=== PATIENT | male | born 1975 | race Caucasian/White ===

== ENCOUNTER 2017-04-12 22:39 | Inpatient (IN) | payer OTHER ==
[2017-04-12 23:16] VITALS: BMI 27.1
--- NOTE | 2017-04-13 00:26 | PDOC ---
History of Present Illness - General History Source: Patient Exam Limitations: No Limitations - History of Present Illness Initial Comments: 04/13/17 02:11 Patient is a 41 year old male with a significant past medical history of ETOH abuse and UGI bleed who presents to the ED with nausea and coffee ground emesis. Patient states that his last drink was 6 am on Tuesday and he started vomiting on Tuesday that stopped Tuesday night. Patient reports multiple vomiting episodes, coffee ground like, and intermittent nausea. He also reports tremors. He reports urine discoloration and back pain. He denies diarrhea or constipation. He denies fever or chills. Last GI bleed was 04/04/16 and alcohol withdrawal. PSH: none Allergies: None Known Social History: He admits to cigarette use (approximately half a pack/week). He admits to daily ETOH since 16 years old. <Columba Holman - Last Filed: 04/13/17 02:11> <Sherita Frazier - Last Filed: 04/13/17 02:19> - General Chief Complaint: Coffee Ground Emesis Stated Complaint: NAUSEA/VOMITING Past History <Columba Holman - Last Filed: 04/13/17 02:11> - Past Medical History Other medical history: ETOH - Psycho/Social/Smoking Cessation Hx Anxiety: No Suicidal Ideation: No Smoking History: Current some day smoker Have you smoked in the past 12 months: Yes Number of Cigarettes Smoked Daily: 2 Information on smoking cessation initiated: No 'Breaking Loose' booklet given: 05/01/16 Hx Alcohol Use: Yes Drug/Substance Use Hx: No Substance Use Type: Alcohol, Cocaine <Sherita Frazier - Last Filed: 04/13/17 02:19> - Past Medical History Allergies/Adverse Reactions: Allergies Allergy/AdvReac Type Severity Reaction Status Date / Time No Known Allergies Allergy Verified 04/12/17 23:16 Home Medications: Ambulatory Orders Folic Acid - 1 mg PO DAILY #30 tablet 05/04/16 Multivitamins [Multivit ([facility] Formul[facility])] 1 tab PO DAILY #0 tab 05/04/16 Pantoprazole Sodium [Protonix -] 40 mg PO DAILY #30 tablet.ec 05/04/16 Thiamine HCl [Vitamin B1 -] 100 mg PO DAILY #30 tablet 05/04/16 Review of Systems - Review of Systems Able to Perform ROS?: Yes Comments:: 04/13/17 02:11 CONSTITUTIONAL: Present: tremors Absent: fever, chills, diaphoresis, generalized weakness, malaise, loss of appetite HEENT: Absent: rhinorrhea, nasal congestion, throat pain, throat swelling, difficulty swallowing, mouth swelling, ear pain, eye pain, visual Changes CARDIOVASCULAR: Absent: chest pain, syncope, palpitations, irregular heart rate, lightheadedness , peripheral edema RESPIRATORY: Absent: cough, shortness of breath, dyspnea with exertion, orthopnea, wheezing, stridor, hemoptysis GASTROINTESTINAL: Present: vomiting, nausea Absent: abdominal pain, abdominal distension, diarrhea, constipation, melena, hematochezia GENITOURINARY: Absent: dysuria, frequency, urgency, hesitancy, hematuria, flank pain, genital pain MUSCULOSKELETAL: Absent: myalgia, arthralgia, joint swelling SKIN: Absent: rash, itching, pallor HEMATOLOGIC/IMMUNOLOGIC: Absent: easy bleeding, easy bruising, lymphadenopathy, frequent infections ENDOCRINE: Absent: unexplained weight gain, unexplained weight loss, heat intolerance, cold intolerance NEUROLOGIC: Absent: headache, focal weakness or paresthesias, dizziness, unsteady gait, seizure, mental status changes, bladder or bowel incontinence PSYCHIATRIC: Absent: anxiety, depression, suicidal or homicidal ideation, hallucinations. Is the patient limited Japanese proficient: Yes <Columba Holman - Last Filed: 04/13/17 02:11> *Physical Exam - Vital Signs Last Vital Signs Temp Pulse Resp BP Pulse Ox 97.9 F 145 H 20 129/59 97 04/12/17 23:10 04/12/17 23:10 04/12/17 23:10 04/12/17 23:10 04/12/17 23:10 - Physical Exam Comments: 04/13/17 02:13 GENERAL: +Tremulous. Awake and alert. No acute distress. HEENT: Normocephalic, atraumatic. PERRLA, EOMI. No conjunctival pallor. Sclera are non- icteric. Moist mucous membranes. Oropharynx is clear. NECK: Supple. Full ROM. No JVD. Carotid pulses 2+ and symmetric, without bruits. No thyromegaly. No lymphadenopathy. CARDIOVASCULAR: +Tachycardic.No murmurs, rubs, or gallops. Distal pulses are 2+ and symmetric. PULMONARY: No evidence of respiratory distress. Lungs clear to auscultation bilaterally. No wheezing, rales or rhonchi. ABDOMINAL: Soft. Non-tender. Non-distended. No rebound or guarding. No organomegaly. Normoactive bowel sounds. MUSCULOSKELETAL Normal range of motion at all joints. No bony deformities or tenderness. No CVA tenderness. EXTREMITIES: No cyanosis. No clubbing. No edema. No calf tenderness. SKIN: Warm and dry. Normal capillary refill. No rashes. No jaundice. NEUROLOGICAL: Alert, awake, appropriate. Cranial nerves 2-12 intact. No deficits to light touch and temperature in face, upper extremities and lower extremities. No motor deficits in the in face, upper extremities and lower extremities. Normoreflexic in the upper and lower extremities. Normal speech. PSYCHIATRIC: Cooperative. Good eye contact. Appropriate mood and affect. <Columba Holman - Last Filed: 04/13/17 02:11> - Vital Signs Last Vital Signs Temp Pulse Resp BP Pulse Ox 97.9 F 145 H 20 129/59 97 04/12/17 23:10 04/12/17 23:10 04/12/17 23:10 04/12/17 23:10 04/12/17 23:10 <Sherita Frazier - Last Filed: 04/13/17 02:19> ED Treatment Course - LABORATORY CBC & Chemistry Diagram: 04/13/17 01:04 04/13/17 01:04 - ADDITIONAL ORDERS Additional order review: Laboratory Results 04/13/17 04/13/17 04/13/17 01:04 01:04 01:04 INR 1.04 Sodium 133 L Potassium 3.5 Chloride 90 L D Carbon Dioxide 28 Anion Gap 15 BUN 19 H D Creatinine 1.2 D Creat Clearance w eGFR > 60 Random Glucose 128 H D Calcium 9.4 D Total Bilirubin 5.4 H D AST 191 H D ALT 162 H D Alkaline Phosphatase 85 D Creatine Kinase 357 H D Troponin I < 0.02 Total Protein 7.7 D Albumin 3.9 D 04/13/17 01:04 RBC 5.04 D MCV 95.7 MCHC 33.6 RDW 15.2 Neutrophils % 83.7 H Lymphocytes % 6.1 L D Monocytes % 10.0 Eosinophils % 0.0 D Basophils % 0.2 - Medications Given in the ED: ED Medications Discontinued Medications Generic Name Dose Route Start Last Admin Trade Name Cheko PRN Reason Stop Dose Admin Chlordiazepoxide HCl 50 mg 04/13/17 01:27 04/13/17 01:34 Librium - PO 04/13/17 01:28 50 mg NOW ONE Administration Chlordiazepoxide HCl 50 mg 04/13/17 01:43 04/13/17 02:10 Librium - PO 04/13/17 01:44 Not Given ONCE ONE Sodium Chloride 1,000 mls @ 1,000 mls/hr 04/13/17 00:28 04/13/17 01:10 Normal Saline - IV 04/13/17 01:27 1,000 mls/hr ASDIR STA Administration Pantoprazole Sodium 40 mg/ 100 mls @ 200 mls/hr 04/13/17 00:29 04/13/17 01:10 Sodium Chloride IVPB 04/13/17 00:58 200 mls/hr ONCE ONE Administration Ondansetron HCl 4 mg 04/13/17 00:28 04/13/17 01:10 Zofran Injection IVPB 04/13/17 00:29 4 mg ONCE ONE Administration <Columba Holman - Last Filed: 04/13/17 02:11> - LABORATORY CBC & Chemistry Diagram: 04/13/17 01:04 04/13/17 01:04 <Sherita Frazier - Last Filed: 04/13/17 02:19> *DC/Admit/Observation/Transfer - Attestations Scribe Attestion: 04/13/17 02:14 Documentation prepared by ROXANE Rey, acting as certified medical coding specialist for Sherita Frazier MD. <Columba Holman - Last Filed: 04/13/17 02:11> - Discharge Dispostion Admit: Yes <Sherita Frazier - Last Filed: 04/13/17 02:19> Diagnosis at time of Disposition: Alcoholic liver disease Gastrointestinal hemorrhage Qualifiers: GI bleed type/associated pathology: unspecified gastrointestinal hemorrhage type Qualified Code(s): K92.2 - Gastrointestinal hemorrhage, unspecified Alcohol withdrawal Qualifiers: Complication of substance-induced condition: uncomplicated Qualified Code(s): F10.230 - Alcohol dependence with withdrawal, uncomplicated - Referrals Referrals: Mateusz Reese [Primary Care Provider] -
[2017-04-13] MEDS ORDERED: SODIUM CHLORIDE 1,000 ML IV STA (00:28)
[2017-04-13] MEDS ORDERED: ONDANSETRON 4 MG/2 ML VIAL IVPB ONE (00:28)
[2017-04-13] MEDS ORDERED: PANTOPRAZOLE SODIUM 40 MG in SODIUM CHLORIDE 100 ML IVPB ONE (00:29)
[2017-04-13] MEDS ORDERED: PANTOPRAZOLE SODIUM 100 ML IVPB ONE (00:54)
[2017-04-13] MEDS ORDERED: ONDANSETRON 4 MG/2 ML VIAL ONE (00:55)
[2017-04-13 01:22] LABS: BASOPHIL 0.2 % (0-2.0); MCH 32.2 pg (25.7-33.7); MCHC 33.6 g/dl (32.0-35.9); MEAN CELL VOLUME 95.7 fl (80-96); NEUTROPHILS 83.7 % (42.8-82.8); RDW 15.2 % (11.9-15.9); WHITE BLOOD COUNT 7.5 K/mm3 (4.0-10.0)
[2017-04-13] MEDS ORDERED: chlordiazePOXIDE HCL 25 MG CAPSULE PO ONE ×2 (01:27→01:43)
[2017-04-13] MEDS ORDERED: chlordiazePOXIDE HCL 25 MG CAPSULE ONE (01:32)
[2017-04-13 01:39] LABS: INR 1.04 (0.82-1.09); PROTHROMBIN TIME (PATIENT) 11.5 SEC (9.98-11.88)
[2017-04-13 01:50] LABS: ALBUMIN 3.9 g/dl (3.4-5.0); ALK PHOS 85 U/L (45-117); ANION GAP 15 (8-16); BILIRUBIN,TOTAL 5.4 mg/dL (0.2-1.0); CALCIUM 9.4 mg/dL (8.5-10.1); CO2 28 mmol/L (21-32); CREATININE 1.2 mg/dL (0.7-1.3); GLUCOSE,RANDOM 128 mg/dL (74-106); SGOT/AST 191 U/L (15-37); SGPT/ALT 162 U/L (12-78); TOT PROT 7.7 g/dl (6.4-8.2)
[2017-04-13 01:59] LABS: TROPONIN I < 0.02 ng/ml (0.00-0.05)
--- NOTE | 2017-04-13 02:29 | PN ---
Teaching Attending Note Name of Resident: Chery Dunaway ATTENDING PHYSICIAN STATEMENT I saw and evaluated the patient. I reviewed the resident's note and discussed the case with the resident. I agree with the resident's findings and plan as documented. SUBJECTIVE: 40 M with pmhx of UGI bleed, etoh abuse ( started at age 16), who presents with coffee-ground emesis. States his last drink was 6 am on Tuesday. Notes multiple episodes of coffee-ground emesis since them. Also notes he had tremors. He was admitted on 04/04/16 for GI bleed and had EGD done which showed thickened mucosal folds. States his last vomit was today and he did not have coffee ground/dark emesis, but it was a light yellow/brown color. Had dark coffee- ground emesis was last Tuesday. No black or bloody stools. No chest pain, pressure or shortness of breath OBJECTIVE: Physical: VS: Vital Signs Period Temp Pulse Resp BP Sys/Jin Pulse Ox Last 24 Hr 97.9 F-98.0 F 91-145 16-20 129-141/59-96 97-100 GEN: NAD, Resting in bed HEENT: NCAT, PERRL CARD: RRR S1, S2 RESP: CTAB ABD: BSx4, NTD to palpation EXT: - C/C/E CBCD WBC 7.5 K/mm3 (4.0-10.0) D 04/13/17 01:04 RBC 5.04 M/mm3 (4.00-5.60) D 04/13/17 01:04 Hgb 16.2 GM/dL (11.7-16.9) D 04/13/17 01:04 Hct 48.2 % (35.4-49) D 04/13/17 01:04 MCV 95.7 fl (80-96) 04/13/17 01:04 MCHC 33.6 g/dl (32.0-35.9) 04/13/17 01:04 RDW 15.2 % (11.9-15.9) 04/13/17 01:04 CMP Sodium 133 mmol/L (136-145) L 04/13/17 01:04 Potassium 3.5 mmol/L (3.5-5.1) 04/13/17 01:04 Chloride 90 mmol/L (98-107) L D 04/13/17 01:04 Carbon Dioxide 28 mmol/L (21-32) 04/13/17 01:04 Anion Gap 15 (8-16) 04/13/17 01:04 BUN 19 mg/dL (7-18) H D 04/13/17 01:04 Creatinine 1.2 mg/dL (0.7-1.3) D 04/13/17 01:04 Creat Clearance w eGFR > 60 (>60) 04/13/17 01:04 Random Glucose 128 mg/dL (74-106) H D 04/13/17 01:04 Calcium 9.4 mg/dL (8.5-10.1) D 04/13/17 01:04 Total Bilirubin 5.4 mg/dL (0.2-1.0) H D 04/13/17 01:04 AST 191 U/L (15-37) H D 04/13/17 01:04 ALT 162 U/L (12-78) H D 04/13/17 01:04 Alkaline Phosphatase 85 U/L (45-117) D 04/13/17 01:04 Total Protein 7.7 g/dl (6.4-8.2) D 04/13/17 01:04 Albumin 3.9 g/dl (3.4-5.0) D 04/13/17 01:04 CARDIAC ENZYMES Creatine Kinase 357 IU/L (39-308) H D 04/13/17 01:04 Troponin I < 0.02 ng/ml (0.00-0.05) 04/13/17 01:04 EKG: NSR, No acute St-T changes ASSESSMENT AND PLAN: 41 yo F with pmhx of UGI bleed and etoh abuse who presents with coffee- ground emesis 1.) UGI bleed - 2 Large Bore IVS - Type and screen - Protonix gtt - NPO - CBC Q 6h - Coags - GI consult 2.) Etoh abuse/Withdrawl - CIWA with Librium - Detox consult - S/P Banana bag in ED 3.) Thrombocytopenia - Most likely due to etoh abuse 4.) Hyponatremia - IVF 5.) Dvt Ppx - Low Risk- SCDs Place in [facility]
[2017-04-13] MEDS ORDERED: FOLIC ACID INJECTION - 1 MG, THIAMINE HCL 100 MG, MULTIVIT INJECTION ADULT 10 ML in SOD... IVPB ONE (03:00)
[2017-04-13 03:09] LABS: MEAN PLT VOLUME 9.1 fl (7.5-11.1); PLATELET COUNT 88 K/MM3 (134-434)
[2017-04-13 03:10] LABS: PLATELET COMMENT2 NO CLUMPING NOTED; PLATELET COMMENT3 NO CLOTTING DETECTED; PLATELET ESTIMATE DECREASED (NORMAL)
[2017-04-13] MEDS ORDERED: chlordiazePOXIDE HCL 25 MG CAPSULE PO PRN ×2 (03:59→09:26)
--- NOTE | 2017-04-13 04:10 | HP ---
HISTORY OF PRESENT ILLNESS: Patient is a 41 year old male with a PMHx of alcohol abuse and UGI bleed who presented for intractable vomiting since tuesday (04/10/17) that first started as a "yellowish" color and then turned into a dark brown/black color described as coffee grounds. Patient reports he was drinking excessively for the last three weeks with last alcoholic drink three days ago (04/10/17) and since then has experienced intermittent sweating, hand tremors, and hiccups. Otherwise, patient denies chest pain, shortness of breath, fever, abdominal pain, diarrhea , constipation, dysuria, frequency, hematuria. Patient denies any NSAID use. Patient denies seeing a Primary Care Physician as follow up. PHYSICAL EXAMINATION Vital Signs - 24 hr 04/12/17 04/13/17 23:10 02:10 Temperature 97.9 F 98.0 F Pulse Rate 145 H Pulse Rate [ 91 H Apical] Respiratory 20 16 Rate Blood Pressure 129/59 Blood Pressure 141/96 [Left] O2 Sat by Pulse 97 100 Oximetry (%) GENERAL: Tremulous, Awake, alert, and fully oriented. HEAD: Normal with no signs of trauma. EYES: Sclera icterus. Pupils equal, round and reactive to light, extraocular movements intact. EARS, NOSE, THROAT: Dry mucous membranes. LUNGS: Breath sounds equal, clear to auscultation bilaterally. No wheezes, and no crackles. No accessory muscle use. HEART: Tachycardic with regular rhythm, normal S1 and S2 without murmur, rub or gallop. ABDOMEN: Soft, nontender, not distended, normoactive bowel sounds, no guarding, no rebound, no masses. No hepatomegaly or splenomegaly. . LOWER EXTREMITIES: 2+ pulses, warm, well-perfused. No calf tenderness. No peripheral edema. Laboratory Results - last 24 hr 04/13/17 04/13/17 04/13/17 01:04 01:04 01:04 WBC 7.5 D RBC 5.04 D Hgb 16.2 D Hct 48.2 D MCV 95.7 MCH 32.2 MCHC 33.6 RDW 15.2 Plt Count 88 L MPV 9.1 Neutrophils % 83.7 H Lymphocytes % 6.1 L D Monocytes % 10.0 Eosinophils % 0.0 D Basophils % 0.2 Platelet Estimate Decreased Platelet Comment No clumping noted INR 1.04 Sodium Potassium Chloride Carbon Dioxide Anion Gap BUN Creatinine Creat Clearance w eGFR Random Glucose Calcium Total Bilirubin AST ALT Alkaline Phosphatase Creatine Kinase 357 H D Creatine Kinase Index 1.0 CK-MB (CK-2) 3.467 CK-MB (CK-2) Rel Index Troponin I < 0.02 Total Protein Albumin Lipase Blood Type Antibody Screen 04/13/17 04/13/17 04/13/17 01:04 01:04 01:04 WBC RBC Hgb Hct MCV MCH MCHC RDW Plt Count MPV Neutrophils % Lymphocytes % Monocytes % Eosinophils % Basophils % Platelet Estimate Platelet Comment INR Sodium 133 L Potassium 3.5 Chloride 90 L D Carbon Dioxide 28 Anion Gap 15 BUN 19 H D Creatinine 1.2 D Creat Clearance w eGFR > 60 Random Glucose 128 H D Calcium 9.4 D Total Bilirubin 5.4 H D AST 191 H D ALT 162 H D Alkaline Phosphatase 85 D Creatine Kinase Creatine Kinase Index CK-MB (CK-2) CK-MB (CK-2) Rel Index Cancelled Troponin I Total Protein 7.7 D Albumin 3.9 D Lipase Blood Type A POSITIVE Antibody Screen Negative IMAGES Chest X-ray (04/13/17): No cardiomegaly, pneumothorax, pleural effusions seen. No acute pathology ASSESSMENT/PLAN: Patient is a 41 year old male with a PMHx of alcohol abuse and Upper GI bleed ( 04/2016) who presented for intractable vomiting with episodes of coffee ground emesis for the last three days and was found to be tachycardic and tremulous. Patient admitted to telemetry for Librium protocol and further monitoring and management. Coffee Ground Emesis likely secondary to Upper GI bleed -2 large bore IV's -Protonix drip, IV NS @100cc/hr -Type and Screen, coagulations, CBC Q6H -NPO -GI consult Alcohol Withdrawals -CIWA 15 -Librium taper protocol -Banana Bag -Detox consult -Monitor for DT's and withdrawal sxs Transaminitis with hyperbilirubinemia -Likely secondary to alchol abuse -Liver U/S ordered -Acute hepatitis panel ordered -Direct bilirubin ordered -Trend LFT's Mild Hyponatremia -IV NS -Trend BMP Thrombocytopenia -Trend CBC -Transfuse <30,000 if actively bleeding, Transfuse <10,000 F/E/N -IV NS -Hyponatremia repleating with IV NS -NPO due to Possible UGIB Disposition -Full code -Admit to ICU Visit type - Emergency Visit Emergency Visit: Yes ED Registration Date: 04/13/17 Care time: The patient presented to the Emergency Department on the above date and was hospitalized for further evaluation of their emergent condition. - New Patient This patient is new to me today: Yes Date on this admission: 04/15/17 - Critical Care Critical Care patient: No
[2017-04-13] MEDS ORDERED: METOCLOPRAMIDE HCL 10 MG TABLET (FP) PO ONE (04:11)
[2017-04-13] MEDS ORDERED: PANTOPRAZOLE SODIUM 80 MG in SODIUM CHLORIDE 100 ML IVPB SCH (04:45)
--- NOTE | 2017-04-13 05:22 | HP ---
CHIEF COMPLAINT: alcohol withdrawal, coffee ground emesis PCP: none HISTORY OF PRESENT ILLNESS: 41yo alcoholic man with PMH of upper GI bleed (hospitalized here 1y ago) who presents with EtOH withdrawal following 2xdays of vomiting. The patient reports drinking heavily for the past 3 weeks (up to 1/2 gallon of Rum per night), with his last drink Tuesday evening (04/10). On Tuesday morning he reports coffee- ground emesis, approximately 1 quart volume. He was continuously vomiting until this evening, which he states was mostly dark-colored, but last few were light yellow/white. He denies any melena or hematochezia. He denies any visual or auditory hallucinations or tactile disturbances. No headache, SOB, chest palpitations, or pressure. No diarrhea. In the ED his initial HR was in the 140's. He was given Librium 50mg PO, and repeat vital signs were 98F, HR 91, BP 141/96, RR 16, 100% on RA. He was admitted to telemetry for possible upper GI bleed and EtOH detox. Recent Travel: none PAST MEDICAL HISTORY: #upper GI bleed: Admitted here 05/01-05/04 for hemetemesis; EGD abnormal duodenal and gastric mucosa PAST SURGICAL HISTORY: none Social History: Smokin/2 ppd Alcohol: drinking since 15yo Drugs: cocaine (last used 2weeks ago); denies IVDU Family History: Alcoholism (father and brothers); Colon Ca - father at 70yo Allergies: No Known Allergies Allergy (Verified 04/12/17 23:16) HOME MEDICATIONS: None REVIEW OF SYSTEMS CONSTITUTIONAL: +chills, diaphoresis, loss of appetite Absent: fever, generalized weakness, malaise, weight change HEENT: Absent: rhinorrhea, nasal congestion, throat pain, throat swelling, difficulty swallowing, mouth swelling, ear pain, eye pain, visual changes CARDIOVASCULAR: Absent: chest pain, syncope, palpitations, irregular heart rate , lightheadedness, peripheral edema RESPIRATORY: Absent: cough, shortness of breath, dyspnea with exertion, orthopnea, wheezing, stridor, hemoptysis GASTROINTESTINAL: +vomiting Absent: abdominal pain, abdominal distension, diarrhea, constipation, melena, hematochezia GENITOURINARY: Absent: dysuria, frequency, urgency, hesitancy, hematuria, flank pain, genital pain MUSCULOSKELETAL: Absent: myalgia, arthralgia, joint swelling, back pain, neck pain SKIN: Absent: rash, itching, pallor HEMATOLOGIC/IMMUNOLOGIC: Absent: easy bleeding, easy bruising, lymphadenopathy, frequent infections ENDOCRINE: Absent: unexplained weight gain, unexplained weight loss, heat intolerance, cold intolerance NEUROLOGIC: Absent: headache, focal weakness or paresthesias, dizziness, unsteady gait, seizure, mental status changes, bladder or bowel incontinence PHYSICAL EXAMINATION Vital Signs - 24 hr 04/13/17 04/13/17 02:22 04:00 Temperature 97.9 F Pulse Rate 92 H Respiratory 16 20 Rate Blood Pressure 130/86 GENERAL: Awake, alert, and fully oriented, in no acute distress. HEAD: Normal with no signs of trauma. EYES: Scleral icteris, PERRLA, conjuctiva clear EARS, NOSE, THROAT: Oropharynx clear without exudates. Moist mucous membranes. No sublingual jaundice NECK: Supple, no cervical LAD LUNGS: CTAB. No wheezes, and no crackles. No accessory muscle use. HEART: Regular rate and rhythm, normal S1 and S2 without murmur, rub or gallop. ABDOMEN: Soft, nontender, not distended, normoactive bowel sounds, no guarding, no rebound, no masses. Hepatomegaly (2cm below costal margin) MUSCULOSKELETAL: Normal range of motion at all joints. No bony deformities or tenderness. No CVA tenderness. UPPER EXTREMITIES: b/l hand tremor, no asterixis, 2+ pulses, warm, well- perfused. No cyanosis. No clubbing. No peripheral edema. LOWER EXTREMITIES: 2+ pulses, warm, well-perfused. No calf tenderness. No peripheral edema. NEUROLOGICAL: Grossly intact, not formally intact PSYCHIATRIC: Cooperative. Good eye contact. Appropriate mood and affect. SKIN: Warm, dry, normal turgor, no rashes or lesions noted Labs: CBC, BMP 04/13/17 01:04 04/13/17 01:04 Laboratory Results - last 24 hr 04/13/17 04/13/17 04/13/17 01:04 01:04 01:04 WBC 7.5 D RBC 5.04 D Hgb 16.2 D Hct 48.2 D MCV 95.7 MCH 32.2 MCHC 33.6 RDW 15.2 Plt Count 88 L MPV 9.1 Neutrophils % 83.7 H Lymphocytes % 6.1 L D Monocytes % 10.0 Eosinophils % 0.0 D Basophils % 0.2 Platelet Estimate Decreased Platelet Comment No clumping noted INR 1.04 Sodium Potassium Chloride Carbon Dioxide Anion Gap BUN Creatinine Creat Clearance w eGFR Random Glucose Calcium Total Bilirubin AST ALT Alkaline Phosphatase Creatine Kinase 357 H D Creatine Kinase Index 1.0 CK-MB (CK-2) 3.467 CK-MB (CK-2) Rel Index Troponin I < 0.02 Total Protein Albumin Lipase Blood Type Antibody Screen 04/13/17 04/13/17 04/13/17 01:04 01:04 01:04 WBC RBC Hgb Hct MCV MCH MCHC RDW Plt Count MPV Neutrophils % Lymphocytes % Monocytes % Eosinophils % Basophils % Platelet Estimate Platelet Comment INR Sodium 133 L Potassium 3.5 Chloride 90 L D Carbon Dioxide 28 Anion Gap 15 BUN 19 H D Creatinine 1.2 D Creat Clearance w eGFR > 60 Random Glucose 128 H D Calcium 9.4 D Total Bilirubin 5.4 H D AST 191 H D ALT 162 H D Alkaline Phosphatase 85 D Creatine Kinase Creatine Kinase Index CK-MB (CK-2) CK-MB (CK-2) Rel Index Cancelled Troponin I Total Protein 7.7 D Albumin 3.9 D Lipase Blood Type A POSITIVE Antibody Screen Negative 04/13/17 01:04 WBC RBC Hgb Hct MCV MCH MCHC RDW Plt Count MPV Neutrophils % Lymphocytes % Monocytes % Eosinophils % Basophils % Platelet Estimate Platelet Comment INR Sodium Potassium Chloride Carbon Dioxide Anion Gap BUN Creatinine Creat Clearance w eGFR Random Glucose Calcium Total Bilirubin AST ALT Alkaline Phosphatase Creatine Kinase Creatine Kinase Index CK-MB (CK-2) CK-MB (CK-2) Rel Index Troponin I Total Protein Albumin Lipase 203 Blood Type Antibody Screen EKG: NSR, no QT prolongation CXR (04/12/2017): no pneumothorax, pleural effusion, or consolidation ASSESSMENT/PLAN: 41yo man with polysubstance abuse with h/o upper GI bleed who presents with coffee ground emesis and EtOH withdrawal. #coffee ground emesis likely 2/2 upper GI bleed -2 LG bore IVs for vascular access -T&S ordered -Trend H&H -Protonix drip 80mg/100mL NS to run at 8mg/hr Q10Hr -GI consult ordered (Dr. Velasquez) #EtOH Detox: CIWA-Ar score is 15 -Librium taper -Librium PRN -Detox consult ordered (Dr. Cid) -EtOH blood levels ordered -Urine tox ordered -Received 1x Banana bag (thiamine, folic acid, multivitamins) --> Thiamine 100mg PO Daily and folic acid 1mg PO DAILY -B12 and folic acid levels pending #Transaminitis likely from EtOH abuse -Liver U/S ordered -Acute hepatitis panel pending #Hyperbilirubinemia -Trend LFTs -Direct bilirubin pending #mild hyponatremia -NS IVF -Na rate of correction 8-10mEq in 24hr -Routine CMP #Thrombocytopenia -Routine CMP #F/E/N -NS IVF @ 100cc/hr -Monitor electrolytes -NPO #Dispo -Admit to tele -FULL code d/w team -Giuliana Pastor MD Visit type - Emergency Visit Emergency Visit: No - New Patient This patient is new to me today: Yes Date on this admission: 04/13/17 - Critical Care Critical Care patient: No
[2017-04-13] MEDS: chlordiazePOXIDE HCL 25 MG CAPSULE PO SCH ×4 (06:43→23:04)
[2017-04-13] MEDS: SODIUM CHLORIDE 1,000 ML IV SCH ×2 (06:47→23:05)
[2017-04-13] MEDS: PANTOPRAZOLE SODIUM 80 MG in SODIUM CHLORIDE 100 ML IVPB SCH ×2 (08:30→16:27)
--- NOTE | 2017-04-13 09:25 | PN ---
Physical Exam: SUBJECTIVE: Patient seen and examined. No more episodes of vomiting. Feels withdrawal symptoms are improving. OBJECTIVE: Vital Signs Period Temp Pulse Resp BP Sys/Jin Pulse Ox Last 24 Hr 97.9 F-98.1 F 86-92 16-20 118-130/85-88 98 GENERAL: The patient is awake, alert, and fully oriented, in no acute distress. Mildly tremulous. HEAD: Normal with no signs of trauma. EYES: PERRL, extraocular movements intact, sclera anicteric, conjunctiva clear. No ptosis. ENT: Ears normal, nares patent, oropharynx clear without exudates, moist mucous membranes. NECK: Trachea midline, full range of motion, supple. LUNGS: Breath sounds equal, clear to auscultation bilaterally, no wheezes, no crackles, no accessory muscle use. HEART: Regular rate and rhythm, S1, S2 without murmur, rub or gallop. ABDOMEN: Soft, nontender, nondistended, normoactive bowel sounds, no guarding, no rebound, no hepatosplenomegaly, no masses. EXTREMITIES: 2+ pulses, warm, well-perfused, no edema. NEUROLOGICAL: Cranial nerves II through XII grossly intact. Normal speech, gait not observed. Mild tremors, tongue fasciculations. No anxiety, nausea, hallucinations, sweats. PSYCH: Normal mood, normal affect. SKIN: Warm, dry, normal turgor, no rashes or lesions noted Laboratory Results - last 24 hr 04/13/17 05:20 Vitamin B12 548 Serum Folate 9 Active Medications Generic Name Dose Route Start Last Admin Trade Name Freq PRN Reason Stop Dose Admin Chlordiazepoxide HCl 25 mg 04/13/17 03:59 Librium - PO 04/16/17 03:58 Q4H PRN WITHDRAWAL(CONT SUBST) Chlordiazepoxide HCl 50 mg 04/13/17 05:00 04/13/17 06:43 Librium - PO 04/13/17 23:01 50 mg [id number] JORY Administration Chlordiazepoxide HCl 25 mg 04/14/17 05:00 Librium - PO 04/14/17 23:01 [id number] JORY Chlordiazepoxide HCl 15 mg 04/15/17 05:00 Librium - PO 04/15/17 23:01 [id number] JORY Folic Acid 1 mg 04/14/17 10:00 Folic Acid - PO DAILY [facility] Folic Acid 1 mg/ Thiamine HCl 1,000 mls @ 125 mls/hr 04/13/17 03:00 04/13/17 03 :02 100 mg/ Multivitamins/Minerals IVPB 04/13/17 10:59 125 mls/hr 10 ml/ Sodium Chloride ONCE ONE Administration Sodium Chloride 1,000 mls @ 100 mls/hr 04/13/17 04:15 04/13/17 06:47 Normal Saline - IV Not Given ASDIR [facility] Pantoprazole Sodium 80 mg/ 100 mls @ 10 mls/hr 04/13/17 06:15 Sodium Chloride IVPB Q10H JORY 8 MG/HR Thiamine HCl 100 mg 04/14/17 10:00 Vitamin B1 - PO DAILY [facility] EKG: NSR, no QT prolongation CXR 04/12: No acute pulmonary disease U/s 04/13: Mildly enlarged fatty liver ASSESSMENT/PLAN: 41 year old male with alcohol withdrawal and likely UGIB. 1. Coffee ground emesis -History of same in 05/2016; endoscopy at that time revealed some abnormal mucosa which was sent for biopsy -H/H 16.2/48.2 1am today; repeat now -On Protonix gtt; can likely switch to PO if GI agrees -NPO pending GI consultation 2. EtOH WD -Symptoms improving -Continue Librium taper and prn dose -Detox consultation pending; patient is uncertain about pursuing rehabilitation -Continue fluids/MVI/Folic Acid/thiamine 3. Transaminitis -Not present on prior visit in 2015 -Acute hepatitis panel pending -Follow 4. Thrombocytopenia -No active bleeding or planned procedures -Follow 5. F/E/N -NS IVF @ 100cc/hr -Monitor electrolytes -NPO DISPO: Requires continued inpatient services. Can transfer to med/surg if critical care and GI agree. Visit type - Emergency Visit Emergency Visit: Yes ED Registration Date: 04/13/17 Care time: The patient presented to the Emergency Department on the above date and was hospitalized for further evaluation of their emergent condition. - New Patient This patient is new to me today: Yes Date on this admission: 04/17/17 - Critical Care Critical Care patient: Yes Total Critical Care Time (in minutes): 35 Critical Care Statement: The care of this patient involved high complexity decision making to prevent further life threatening deterioration of the patient 's condition and/or to evalute & treat vital organ system(s) failure or risk of failure. - Discharge Referral Referred to [facility] No
[2017-04-13] MEDS ORDERED: THIAMINE HCL 100 MG TABLET (FP) PO SCH ×2 (10:00→22:00)
[2017-04-13 10:17] LABS: URINE APPEARANCE CLEAR; URINE BLOOD NEGATIVE (NEGATIVE); URINE COLOR AMBER; URINE GLUCOSE (UA) NEGATIVE (NEGATIVE); URINE KETONE 1+ (NEGATIVE); URINE LEUK ESTERASE NEGATIVE (NEGATIVE); URINE NITRITE NEGATIVE (NEGATIVE); URINE UROBILINOGEN 4.0 E.U/dl E.U./dl (0.2-1.0)
[2017-04-13] MEDS ORDERED: chlorproMAZINE HCL 25 MG TABLET PO PRN (10:27)
[2017-04-13 10:51] LABS: BASOPHIL 0.3 % (0-2.0); MCH 32.8 pg (25.7-33.7); MCHC 33.6 g/dl (32.0-35.9); MEAN CELL VOLUME 97.5 fl (80-96); MEAN PLT VOLUME 9.8 fl (7.5-11.1); NEUTROPHILS 76.7 % (42.8-82.8); PLATELET COUNT 69 K/MM3 (134-434); RDW 15.1 % (11.9-15.9); WHITE BLOOD COUNT 6.6 K/mm3 (4.0-10.0)
[2017-04-13] MEDS ORDERED: chlordiazePOXIDE HCL 25 MG CAPSULE PO SCH ×2 (11:00→11:30)
[2017-04-13 11:07] LABS: URINE PROTEIN 1+ (NEGATIVE)
[2017-04-13 11:33] LABS: URINE HYALINE CAST 1 /lpf; URINE MUCUS RARE; URINE WBC 1 /hpf (3-5)
[2017-04-13 11:47] LABS: URINE MARIJUANA THC NEGATIVE ng/ml (CUTOFF=50)
--- NOTE | 2017-04-13 11:51 | EKG ---
Test Reason : Blood Pressure : / mmHG Vent. Rate : 087 BPM Atrial Rate : 087 BPM P-R Int : 152 ms QRS Dur : 086 ms QT Int : 410 ms P-R-T Axes : 034 041 058 degrees QTc Int : 493 ms NORMAL SINUS RHYTHM CANNOT RULE OUT ANTERIOR INFARCT , AGE UNDETERMINED ABNORMAL ECG WHEN COMPARED WITH ECG OF 01-MAY-2016 11:18, NO SIGNIFICANT CHANGE WAS FOUND Confirmed by EDUARDO CONNELL, SARAH ([id number]) on 04/13/2017 11:50:59 AM Referred By: Confirmed By:SARAH CLARK MD
[2017-04-13] MEDS ORDERED: BENZOCAINE/MENTH/CETYLPYRD CL 1 EACH LOZENGE MM PRN (14:19)
--- NOTE | 2017-04-13 16:01 | CONSULT ---
Consult Detox [facility] Reason for Current Admission/Consult: Alcohol withdrawal sx. Referred by:: Giuliana Pastor Res - History History of Present Illness: 41 y/o man with hx of alcoholism is admitted because of coffee ground vomitus. Pt. has withdrawal sx. as evidenced by tremors, sweating, nausea & vomiting. 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: Yes: CVA Heme/Onc: Yes: Current Chemotherapy - Significant Medical Findings: Laboratory Last Values WBC 6.6 K/mm3 (4.0-10.0) 04/13/17 10:35 RBC 4.63 M/mm3 (4.00-5.60) 04/13/17 10:35 Hgb 15.2 GM/dL (11.7-16.9) 04/13/17 10:35 Hct 45.2 % (35.4-49) 04/13/17 10:35 MCV 97.5 fl (80-96) H 04/13/17 10:35 MCH 32.8 pg (25.7-33.7) 04/13/17 10:35 MCHC 33.6 g/dl (32.0-35.9) 04/13/17 10:35 RDW 15.1 % (11.9-15.9) 04/13/17 10:35 Plt Count 69 K/MM3 (134-434) L D 04/13/17 10:35 MPV 9.8 fl (7.5-11.1) 04/13/17 10:35 Neutrophils % 76.7 % (42.8-82.8) 04/13/17 10:35 Lymphocytes % 11.9 % (8-40) D 04/13/17 10:35 Monocytes % 11.1 % (3.8-10.2) H 04/13/17 10:35 Eosinophils % 0.0 % (0-4.5) 04/13/17 10:35 Basophils % 0.3 % (0-2.0) 04/13/17 10:35 Platelet Estimate Decreased (NORMAL) 04/13/17 01:04 Platelet Comment Few giant plts 04/13/17 01:04 Platelet Comment No clumping noted 04/13/17 01:04 INR 1.04 (0.82-1.09) 04/13/17 01:04 Sodium 133 mmol/L (136-145) L 04/13/17 01:04 Potassium 3.5 mmol/L (3.5-5.1) 04/13/17 01:04 Chloride 90 mmol/L (98-107) L D 04/13/17 01:04 Carbon Dioxide 28 mmol/L (21-32) 04/13/17 01:04 Anion Gap 15 (8-16) 04/13/17 01:04 BUN 19 mg/dL (7-18) H D 04/13/17 01:04 Creatinine 1.2 mg/dL (0.7-1.3) D 04/13/17 01:04 Creat Clearance w eGFR > 60 (>60) 04/13/17 01:04 Random Glucose 128 mg/dL (74-106) H D 04/13/17 01:04 Calcium 9.4 mg/dL (8.5-10.1) D 04/13/17 01:04 Total Bilirubin 5.4 mg/dL (0.2-1.0) H D 04/13/17 01:04 AST 191 U/L (15-37) H D 04/13/17 01:04 ALT 162 U/L (12-78) H D 04/13/17 01:04 Alkaline Phosphatase 85 U/L (45-117) D 04/13/17 01:04 Creatine Kinase 357 IU/L (39-308) H D 04/13/17 01:04 Creatine Kinase Index 1.0 % (0.0-5.0) 04/13/17 01:04 CK-MB (CK-2) 3.467 ng/ml (0.5-3.6) 04/13/17 01:04 CK-MB (CK-2) Rel Index Cancelled 04/13/17 01:04 Troponin I < 0.02 ng/ml (0.00-0.05) 04/13/17 01:04 Total Protein 7.7 g/dl (6.4-8.2) D 04/13/17 01:04 Albumin 3.9 g/dl (3.4-5.0) D 04/13/17 01:04 Lipase 203 U/L (73-393) 04/13/17 01:04 Vitamin B12 548 pg/ml (180-914) 04/13/17 05:20 Serum Folate 9 ng/ml (3.1-17.5) 04/13/17 05:20 Urine Color Ana 04/13/17 09:00 Urine Appearance Clear 04/13/17 09:00 Urine pH 6.0 (5.0-8.0) 04/13/17 09:00 Urine Protein 1+ (NEGATIVE) H 04/13/17 09:00 Urine Glucose (UA) Negative (NEGATIVE) 04/13/17 09:00 Urine Ketones 1+ (NEGATIVE) H 04/13/17 09:00 Urine Blood Negative (NEGATIVE) 04/13/17 09:00 Urine Nitrite Negative (NEGATIVE) 04/13/17 09:00 Urine Bilirubin 2.0 (NEGATIVE) 04/13/17 09:00 Urine Urobilinogen 4.0 e.u/dl E.U./dl (0.2-1.0) 04/13/17 09:00 Ur Leukocyte Esterase Negative (NEGATIVE) 04/13/17 09:00 Urine RBC None /hpf (0-3) 04/13/17 09:00 Urine WBC 1 /hpf (3-5) 04/13/17 09:00 Ur Epithelial Cells Rare /hpf (FEW) 04/13/17 09:00 Hyaline Casts 1 /lpf 04/13/17 09:00 Urine Mucus Rare 04/13/17 09:00 Opiates Screen Negative ng/ml (YZRYGU=140) 04/13/17 09:00 Methadone Screen Negative ng/ml (KTFICU=099) 04/13/17 09:00 Barbiturate Screen Negative ng/ml (GOYJNY=739) 04/13/17 09:00 Phencyclidine Screen Negative ng/ml (CUTOFF=25) 04/13/17 09:00 Ur Amphetamines Screen Negative ng/ml (GMSHGY=191) 04/13/17 09:00 MDMA (Ecstasy) Screen Negative ng/ml (EYFFUU=189) 04/13/17 09:00 Benzodiazepines Screen Negative ng/ml (SSBXAF=208) 04/13/17 09:00 Cocaine Screen Negative ng/ml (FKFAMV=498) 04/13/17 09:00 U Marijuana (THC) Screen Negative ng/ml (CUTOFF=50) 04/13/17 09:00 Blood Type A POSITIVE 04/13/17 01:04 Antibody Screen Negative 04/13/17 01:04 labs noted CIWA Score - CIWA Score Nausea/Vomitin Muscle Tremors: 4-Moderate,w/Arms Extend Anxiety: 4-Mod. Anxious/Guarded Agitation: 3 Paroxysmal Sweats: 3 Orientation: 0-Oriented Tacttile Disturbances: 0-None Auditory Disturbances: 0-None Visual Disturbances: 0-None Headache: 0-None Present CIWA-Ar Total Score: 19 Assessment Plan - Diagnosis (1) Alcoholic liver disease Status: Acute (2) Gastrointestinal hemorrhage Status: Acute Qualifiers: GI bleed type/associated pathology: unspecified gastrointestinal hemorrhage type Qualified Code(s): K92.2 - Gastrointestinal hemorrhage, unspecified (3) Alcohol dependence with uncomplicated withdrawal Status: Acute - Plan Plan: Refer to IOP - Medication Detox Regimen/Protocol: Emerita (in progress)
[2017-04-13] MEDS ORDERED: PT OWN MED DRAWER 7, Y5N ONE (16:16)
--- NOTE | 2017-04-13 20:50 | CON.GI ---
Consult Consult Specialty:: GI Referred by:: Dr Nunez Reason for Consultation:: GI bleed - History of Present Illness Chief Complaint: coffeeground emesis History of Present Illness: 41 M known to myself from admission for similar issue last year now back with N/ V for 1 week and coffeeground emesis on the day of admission. As Dr Dunaway documents in her note, the patient initially had bilious vomiting with coffegrounds noted on the day [employer]MI[employer]. The patient had EGD last admit (03/2016) with finding of only mucosal trauma secondary to vomiting. This strongly suggests Lizzy Matt Tear of the GE junction, an injury that is often benign and transient. There has been no bleeding since and the patient is hungry. Since admission, Hgb has dropped from 16.2 to 15.2, a change likely representing hydration. 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 - Alcohol/Substance Use Hx Alcohol Use: Yes - Smoking History Smoking history: Current some day smoker Have you smoked in the past 12 months: Yes Aproximately how many cigarettes per day: 2 Home Medications - Allergies Allergies/Adverse Reactions: Allergies Allergy/AdvReac Type Severity Reaction Status Date / Time No Known Allergies Allergy Verified 04/12/17 23:16 - Home Medications Home Medications: Ambulatory Orders Folic Acid - 1 mg PO DAILY #30 tablet 05/04/16 Multivitamins [Multivit ([facility] Formulary)] 1 tab PO DAILY #0 tab 05/04/16 Pantoprazole Sodium [Protonix -] 40 mg PO DAILY #30 tablet.ec 05/04/16 Thiamine HCl [Vitamin B1 -] 100 mg PO DAILY #30 tablet 05/04/16 Physical Exam-GI Vital Signs: Vital Signs Temperature 98.4 F 04/13/17 20:00 Pulse Rate 84 04/13/17 20:00 Respiratory Rate 18 04/13/17 20:17 Blood Pressure 114/82 04/13/17 20:00 O2 Sat by Pulse Oximetry (%) 98 04/13/17 20:17 Constitutional: Yes: Well Nourished, No Distress Cardiovascular: Yes: Regular Rate and Rhythm Respiratory: Yes: CTA Bilaterally Gastrointestinal Inspection: Yes: WNL ...Auscultate: Yes: Normoactive Bowel Sounds ...Palpate: Yes: Soft. No: Tenderness Labs: CBC, BMP 04/13/17 10:35 INR, PTT INR 1.04 (0.82-1.09) 04/13/17 01:04 Hepatic Panel Total Bilirubin 5.4 mg/dL (0.2-1.0) H D 04/13/17 01:04 AST 191 U/L (15-37) H D 04/13/17 01:04 ALT 162 U/L (12-78) H D 04/13/17 01:04 Alkaline Phosphatase 85 U/L (45-117) D 04/13/17 01:04 Albumin 3.9 g/dl (3.4-5.0) D 04/13/17 01:04 Imaging - Results Ultrasound: Report Reviewed ("fatty, enlarged liver") Assessment/Plan Lizzy Matt Tear in patient with alcoholic gastritis. Rec: ETOH detox protocol. Protonix 40 mg IVPB daily Low Na diet ETOH abstinence Continue PPI as outpatient Will see prn
[2017-04-13] MEDS ORDERED: FOLIC ACID 1 MG TABLET (FP) PO SCH (22:00)
[2017-04-14] MEDS: chlordiazePOXIDE HCL 25 MG CAPSULE PO SCH ×4 (05:48→22:16)
[2017-04-14] MEDS: SODIUM CHLORIDE 1,000 ML IV SCH ×2 (05:48→20:30)
[2017-04-14 07:57] LABS: BASOPHIL 0.1 % (0-2.0); EOSINOPHIL 0.4 % (0-4.5); MCHC 33.7 g/dl (32.0-35.9); MEAN CELL VOLUME 97.9 fl (80-96); MEAN PLT VOLUME 9.3 fl (7.5-11.1); NEUTROPHILS 80.8 % (42.8-82.8); PLATELET COUNT 59 K/MM3 (134-434); WHITE BLOOD COUNT 6.3 K/mm3 (4.0-10.0)
[2017-04-14 09:46] LABS: ALBUMIN 3.2 g/dl (3.4-5.0); ALK PHOS 80 U/L (45-117); ANION GAP 11 (8-16); BILIRUBIN,DIRECT 1.9 mg/dL (0.0-0.2); BILIRUBIN,TOTAL 3.6 mg/dL (0.2-1.0); CALCIUM 8.1 mg/dL (8.5-10.1); CO2 28 mmol/L (21-32); CREATININE 1.2 mg/dL (0.7-1.3); GLUCOSE,RANDOM 78 mg/dL (74-106); SGOT/AST 248 U/L (15-37); SGPT/ALT 146 U/L (12-78); TOT PROT 6.2 g/dl (6.4-8.2)
[2017-04-14] MEDS ORDERED: FOLIC ACID 1 MG TABLET (FP) PO SCH (10:00)
[2017-04-14] MEDS ORDERED: THIAMINE HCL 100 MG TABLET (FP) PO SCH (10:00)
[2017-04-14] MEDS ORDERED: PANTOPRAZOLE SODIUM 100 ML IVPB SCH (10:00)
[2017-04-14] MEDS ORDERED: chlordiazePOXIDE HCL 25 MG CAPSULE PO SCH (11:00)
[2017-04-14] MEDS ORDERED: POTASSIUM CHLORIDE TABS 20 MEQ TABLET.ER (FP) PO SCH ×2 (16:15→22:15)
--- NOTE | 2017-04-14 19:23 | PN ---
Physical Exam: SUBJECTIVE: Patient seen and examined. Feeling better. Very remorseful. OBJECTIVE: Vital Signs Period Temp Pulse Resp BP Sys/Jin Pulse Ox Last 24 Hr 98 F-98.9 F 84-125 16-20 112-139/70-82 98-100 GENERAL: The patient is awake, alert, and fully oriented, in no acute distress. HEAD: Normal with no signs of trauma. EYES: PERRL, extraocular movements intact, sclera anicteric, conjunctiva clear. No ptosis. ENT: Ears normal, nares patent, oropharynx clear without exudates, moist mucous membranes. NECK: Trachea midline, full range of motion, supple. LUNGS: Breath sounds equal, clear to auscultation bilaterally, no wheezes, no crackles, no accessory muscle use. HEART: Regular rate and rhythm, S1, S2 without murmur, rub or gallop. ABDOMEN: Soft, nontender, nondistended, normoactive bowel sounds, no guarding, no rebound, no hepatosplenomegaly, no masses. EXTREMITIES: 2+ pulses, warm, well-perfused, no edema. NEUROLOGICAL: Cranial nerves II through XII grossly intact. Normal speech, gait not observed. No tremors observed. Laboratory Results - last 24 hr 04/14/17 04/14/17 04/14/17 05:45 05:45 05:45 WBC RBC Hgb Hct MCV MCH MCHC RDW Plt Count MPV Neutrophils % Lymphocytes % Monocytes % Eosinophils % Basophils % PTT (Actin FS) 25.8 L Sodium 139 Potassium 3.1 L Chloride 100 D Carbon Dioxide 28 Anion Gap 11 BUN 17 Creatinine 1.2 Creat Clearance w eGFR > 60 Random Glucose 78 D Calcium 8.1 L Total Bilirubin 3.6 H D Direct Bilirubin 1.9 H D AST 248 H D ALT 146 H Alkaline Phosphatase 80 Total Protein 6.2 L Albumin 3.2 L Alcohol, Quantitative < 5.0 04/14/17 05:45 WBC 6.3 RBC 4.55 Hgb 15.0 Hct 44.6 MCV 97.9 H MCH 33.0 MCHC 33.7 RDW 15.0 Plt Count 59 L MPV 9.3 Neutrophils % 80.8 Lymphocytes % 12.4 Monocytes % 6.3 Eosinophils % 0.4 D Basophils % 0.1 PTT (Actin FS) Sodium Potassium Chloride Carbon Dioxide Anion Gap BUN Creatinine Creat Clearance w eGFR Random Glucose Calcium Total Bilirubin Direct Bilirubin AST ALT Alkaline Phosphatase Total Protein Albumin Alcohol, Quantitative Active Medications Generic Name Dose Route Start Last Admin Trade Name Freq PRN Reason Stop Dose Admin Benzocaine/Menthol 1 each 04/13/17 14:19 04/13/17 16:28 Cepacol Lozenge - MM 1 each PRN PRN Administration SORE THROAT Chlordiazepoxide HCl 25 mg 04/14/17 05:00 04/14/17 16:21 Librium - PO 04/14/17 23:01 25 mg [id number] JORY Administration Chlordiazepoxide HCl 15 mg 04/15/17 05:00 Librium - PO 04/15/17 23:01 [id number] JORY Chlordiazepoxide HCl 25 mg 04/13/17 09:26 Librium - PO 04/16/17 09:25 Q4H PRN WITHDRAWAL(CONT SUBST) Chlorpromazine HCl 25 mg 04/13/17 10:27 04/13/17 12:54 Thorazine - PO 25 mg TID PRN Administration hiccups Folic Acid 1 mg 04/14/17 10:00 04/14/17 10:24 Folic Acid - PO 1 mg DAILY JORY Administration Sodium Chloride 1,000 mls @ 100 mls/hr 04/13/17 04:15 04/14/17 05:48 Normal Saline - IV Not Given ASDIR JORY Pantoprazole Sodium 100 mls @ 200 mls/hr 04/14/17 10:00 04/14/17 10:25 Protonix 40mg Ivpb (Pre-Docked) IVPB 200 mls/hr DAILY JORY Administration Potassium Chloride 40 meq 04/14/17 16:15 04/14/17 16:21 K-Dur - PO 04/14/17 22:16 40 meq Q6H JORY Administration Thiamine HCl 100 mg 04/14/17 10:00 04/14/17 10:24 Vitamin B1 - PO 100 mg DAILY JORY Administration Imaging CXR 04/12: No acute pulmonary disease U/s 04/13: Mildly enlarged fatty liver ASSESSMENT/PLAN 41 year old male with alcohol withdrawal and likely UGIB. Alcoholic gastritis Lizzy Matt tear --no further episodes of coffe-ground emesis --h/y stable --continue protonix IVPB daily Acute alcohol withdrawal --continue librium taper --continue fluids/MVI/Folic Acid/thiamine Transaminitis --trending down --hepatitis serologies pending Thrombocytopenia --likely related to chronic alcohol abuse --no bleeding issues Hypokalemia --repleted F/E/N Fluids: NS @ 100mL/hr Electrolytes: replete as indicated Nutrition: low sodium DISPO: continues to require inpatient care. D/C telemetry. Full code. Visit type - Emergency Visit Emergency Visit: Yes ED Registration Date: 04/13/17 Care time: The patient presented to the Emergency Department on the above date and was hospitalized for further evaluation of their emergent condition. - New Patient This patient is new to me today: Yes Date on this admission: 04/14/17 - Critical Care Critical Care patient: No
[2017-04-14] MEDS ORDERED: chlordiazePOXIDE HCL 25 MG CAPSULE PO PRN (21:48)
[2017-04-14] MEDS ORDERED: BENZOCAINE/MENTH/CETYLPYRD CL 1 EACH LOZENGE MM PRN (21:48)
[2017-04-14] MEDS ORDERED: SODIUM CHLORIDE 1,000 ML IV SCH (21:48)
[2017-04-14] MEDS ORDERED: chlorproMAZINE HCL 25 MG TABLET PO PRN (21:48)
[2017-04-15] MEDS ORDERED: chlordiazePOXIDE 5 MG CAPSULE PO SCH ×3 (05:00→11:00)
[2017-04-15] MEDS: chlordiazePOXIDE HCL 25 MG CAPSULE PO SCH ×3 (05:19→19:38)
[2017-04-15 07:16] LABS: BASOPHIL 0.4 % (0-2.0); EOSINOPHIL 0.8 % (0-4.5); MCH 33.1 pg (25.7-33.7); MCHC 33.5 g/dl (32.0-35.9); MEAN CELL VOLUME 98.9 fl (80-96); MEAN PLT VOLUME 9.7 fl (7.5-11.1); NEUTROPHILS 70.8 % (42.8-82.8); PLATELET COUNT 52 K/MM3 (134-434); WHITE BLOOD COUNT 3.9 K/mm3 (4.0-10.0)
[2017-04-15 07:48] LABS: ALBUMIN 2.6 g/dl (3.4-5.0); ANION GAP 8 (8-16); CO2 26 mmol/L (21-32); GLUCOSE,RANDOM 88 mg/dL (74-106); SGOT/AST 338 U/L (15-37); SGPT/ALT 194 U/L (12-78)
[2017-04-15 07:49] LABS: ALK PHOS 90 U/L (45-117); BILIRUBIN,TOTAL 2.2 mg/dL (0.2-1.0); CALCIUM 7.3 mg/dL (8.5-10.1); CREATININE 0.9 mg/dL (0.7-1.3); MAGNESIUM 1.8 mg/dL (1.8-2.4); TOT PROT 5.2 g/dl (6.4-8.2)
--- NOTE | 2017-04-15 08:33 | PN ---
Physical Exam: SUBJECTIVE: Patient seen and examined. Ambulating around the room. Anxious to go home. Does not want to discuss rehab, AA, or other options. Feels he can abstain from alcohol on his own. 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 OBJECTIVE: Vital Signs Period Temp Pulse Resp BP Sys/Jin Pulse Ox Last 24 Hr 98 F-98.9 F 81-108 16-20 118-139/70-79 96-100 GENERAL: The patient is awake, alert, and fully oriented. Mildly agitated. HEAD: Normal with no signs of trauma. EYES: PERRL, extraocular movements intact, sclera injected appearance, no ptosis. LUNGS: Breath sounds equal, clear to auscultation bilaterally, no wheezes, no crackles, no accessory muscle use. HEART: Regular rate and rhythm, S1, S2 without murmur, rub or gallop. ABDOMEN: Soft, nontender, nondistended, normoactive bowel sounds, no guarding, no rebound, no hepatosplenomegaly, no masses. EXTREMITIES: 2+ pulses, warm, well-perfused, no edema. NEUROLOGICAL: Cranial nerves II through XII grossly intact. Normal speech, steady gait. Laboratory Results - last 24 hr 04/14/17 04/14/17 04/14/17 05:45 05:45 05:45 WBC RBC Hgb Hct MCV MCH MCHC RDW Plt Count MPV Neutrophils % Lymphocytes % Monocytes % Eosinophils % Basophils % PTT (Actin FS) 25.8 L Sodium 139 Potassium 3.1 L Chloride 100 D Carbon Dioxide 28 Anion Gap 11 BUN 17 Creatinine 1.2 Creat Clearance w eGFR > 60 Random Glucose 78 D Calcium 8.1 L Total Bilirubin 3.6 H D Direct Bilirubin 1.9 H D AST 248 H D ALT 146 H Alkaline Phosphatase 80 Total Protein 6.2 L Albumin 3.2 L Hepatitis A IgM Ab Negative Hep Bs Antigen Negative Hep B Core IgM Ab Negative Hepatitis C Ab (EIA) <0.1 04/15/17 05:35 WBC 3.9 L D RBC 4.10 Hgb 13.6 Hct 40.6 MCV 98.9 H MCH 33.1 MCHC 33.5 RDW 15.0 Plt Count 52 L MPV 9.7 Neutrophils % 70.8 Lymphocytes % 19.7 D Monocytes % 8.3 Eosinophils % 0.8 D Basophils % 0.4 D PTT (Actin FS) Sodium Potassium Chloride Carbon Dioxide Anion Gap BUN Creatinine Creat Clearance w eGFR Random Glucose Calcium Total Bilirubin Direct Bilirubin AST ALT Alkaline Phosphatase Total Protein Albumin Hepatitis A IgM Ab Hep Bs Antigen Hep B Core IgM Ab Hepatitis C Ab (EIA) Active Medications Generic Name Dose Route Start Last Admin Trade Name Micheletq PRN Reason Stop Dose Admin Benzocaine/Menthol 1 each 04/14/17 21:48 Cepacol Lozenge - MM PRN PRN SORE THROAT Chlordiazepoxide HCl 25 mg 04/14/17 21:48 Librium - PO 04/16/17 09:25 Q4H PRN WITHDRAWAL(CONT SUBST) Chlordiazepoxide HCl 25 mg 04/14/17 23:00 04/15/17 05:19 Librium - PO 04/15/17 17:01 25 mg [id number] JORY Administration Chlordiazepoxide HCl 15 mg 04/15/17 23:00 Librium - PO 04/16/17 17:01 [id number] JORY Folic Acid 1 mg 04/15/17 10:00 Folic Acid - PO DAILY JORY Pantoprazole Sodium 100 mls @ 200 mls/hr 04/15/17 10:00 Protonix 40mg Ivpb (Pre-Docked) IVPB DAILY JORY Sodium Chloride 1,000 mls @ 100 mls/hr 04/14/17 21:48 04/14/17 21:50 Normal Saline - IV 100 mls/hr ASDIR JORY Administration Thiamine HCl 100 mg 04/15/17 10:00 Vitamin B1 - PO DAILY JORY Imaging CXR 04/12: No acute pulmonary disease U/s 04/13: Mildly enlarged fatty liver ASSESSMENT/PLAN 41 year old male with alcohol withdrawal and likely UGIB. Alcoholic gastritis Lizzy Matt tear --no further episodes of coffee-ground emesis --h/h stable --switch to PO protonix Acute alcohol withdrawal --mildly agitated, nervous, does not make eye contact; librium 25mg x 1 stat dose --continue librium taper --continue fluids/MVI/folic acid/thiamine Transaminitis --AST and ALT trending up --04/13 liver: fatty, mildly enlarged --hepatitis serologies negative Thrombocytopenia --platelets continue to drop, 88k on admission, today 52k --likely related to chronic alcohol abuse --no bleeding issues Hypokalemia, resolved F/E/N Fluids: PO intake adequate Electrolytes: replete as indicated Nutrition: low sodium DISPO: continues to require inpatient care. Full code. Visit type - Emergency Visit Emergency Visit: Yes ED Registration Date: 04/13/17 Care time: The patient presented to the Emergency Department on the above date and was hospitalized for further evaluation of their emergent condition. - New Patient This patient is new to me today: No - Critical Care Critical Care patient: No
[2017-04-15] MEDS ORDERED: PANTOPRAZOLE SODIUM 100 ML IVPB SCH (10:00)
[2017-04-15] MEDS: THIAMINE HCL 100 MG TABLET (FP) PO SCH (10:47)
[2017-04-15] MEDS: FOLIC ACID 1 MG TABLET (FP) PO SCH (10:47)
[2017-04-15] MEDS ORDERED: chlordiazePOXIDE HCL 25 MG CAPSULE PO ONE (16:04)
[2017-04-15] MEDS: chlordiazePOXIDE 5 MG CAPSULE PO SCH (23:26)
[2017-04-16] MEDS: chlordiazePOXIDE 5 MG CAPSULE PO SCH ×2 (05:46→11:24)
[2017-04-16] MEDS: FOLIC ACID 1 MG TABLET (FP) PO SCH (09:18)
[2017-04-16] MEDS: THIAMINE HCL 100 MG TABLET (FP) PO SCH (09:18)
[2017-04-16 09:25] VITALS: BP 119/80; PULSE 120; TEMP 97.8
[2017-04-16 09:33] LABS: BASOPHIL 0.4 % (0-2.0); EOSINOPHIL 1.7 % (0-4.5); MCH 32.8 pg (25.7-33.7); MCHC 33.7 g/dl (32.0-35.9); MEAN CELL VOLUME 97.4 fl (80-96); MEAN PLT VOLUME 9.2 fl (7.5-11.1); NEUTROPHILS 75.1 % (42.8-82.8); PLATELET COUNT 100 K/MM3 (134-434); RDW 14.8 % (11.9-15.9); WHITE BLOOD COUNT 6.6 K/mm3 (4.0-10.0)
[2017-04-16 10:00] LABS: ALBUMIN 3.4 g/dl (3.4-5.0); ANION GAP 8 (8-16); BILIRUBIN,TOTAL 1.5 mg/dL (0.2-1.0); CALCIUM 8.6 mg/dL (8.5-10.1); CO2 23 mmol/L (21-32); GLUCOSE,RANDOM 134 mg/dL (74-106); SGOT/AST 294 U/L (15-37); SGPT/ALT 275 U/L (12-78); TOT PROT 6.8 g/dl (6.4-8.2)
[2017-04-16] MEDS ORDERED: PANTOPRAZOLE 40 MG TABLET (FP) PO SCH (10:00)
[2017-04-16 10:01] LABS: ALK PHOS 129 U/L (45-117)
--- NOTE | 2017-04-16 13:06 | DS ---
Physical Exam: SUBJECTIVE: Patient left AMA prior to eval. OBJECTIVE: Vital Signs Period Temp Pulse Resp BP Sys/Jin Pulse Ox Last 24 Hr 97.8 F-99.3 F 76-120 14-18 119-139/77-96 98-99 Unable to exam before pt left AMA Laboratory Results - last 24 hr 04/16/17 04/16/17 09:15 09:15 WBC 6.6 D RBC 4.79 Hgb 15.7 D Hct 46.6 MCV 97.4 H MCH 32.8 MCHC 33.7 RDW 14.8 Plt Count 100 L D MPV 9.2 Neutrophils % 75.1 Lymphocytes % 13.1 D Monocytes % 9.7 Eosinophils % 1.7 D Basophils % 0.4 Sodium 138 Potassium 3.9 Chloride 107 Carbon Dioxide 23 Anion Gap 8 BUN 10 D Creatinine 1.0 Creat Clearance w eGFR > 60 Random Glucose 134 H D Calcium 8.6 Total Bilirubin 1.5 H D AST 294 H ALT 275 H D Alkaline Phosphatase 129 H D Total Protein 6.8 D Albumin 3.4 D HOSPITAL COURSE: Date of Admission:04/13/17 Date of Discharge: 04/16/17 Minutes to complete discharge: 36 Discharge Summary Reason For Visit: GI HEMORRHAGE ETOH WITHDRAWAL Hospital Course: Initial Hospital Course: 41 year old male with a PMHx of alcohol abuse and UGI bleed admitted with intractable vomiting since 04/10/17, first started as a "yellowish" color and then turned into a dark brown/black color described as coffee grounds. Patient was drinking excessively for the last three weeks with last alcoholic drink three days ago (04/10/17) and since then has experienced intermittent sweating, hand tremors, and hiccups. Last GI bleed 04/04/16 Subsequent Hospital Course: The patient had EGD last admit (03/2016) with finding of only mucosal trauma secondary to vomiting. Strongly suggesting Lizzy Matt Tear of the GE junction , an injury that is often benign and transient. No further EGD or colonoscopy done during admission Placed on protonix 40mg daily Nearly completed Librium taper before leaving AMA LFT's labile, alk phos elevated on labs today Patient did not wait to be evaluated, per nurse he wanted to leave hospital Pt signed out AMA - Instructions Referrals: Mateusz Reese [Primary Care Provider] - Disposition: AGAINST MEDICAL ADVICE - Home Medications Comprehensive Discharge Medication List: Ambulatory Orders Folic Acid - 1 mg PO DAILY #30 tablet 05/04/16 Multivitamins [Multivit ([facility] Formulary)] 1 tab PO DAILY #0 tab 05/04/16 Pantoprazole Sodium [Protonix -] 40 mg PO DAILY #30 tablet.ec 05/04/16 Thiamine HCl [Vitamin B1 -] 100 mg PO DAILY #30 tablet 05/04/16 This patient is new to me today: Yes Date on this admission: 04/16/17 Emergency Visit: Yes ED Registration Date: 04/13/17 Care time: The patient presented to the Emergency Department on the above date and was hospitalized for further evaluation of their emergent condition. Critical Care patient: No - Discharge Referral Referred to [facility] No
== END 2017-04-16 12:12 | disposition left against medical advice (07) | DRG 242 ==
LOC: SUPCPDRO 22:39 → JER 22:39 → JERBED 04-13 02:19 → UNDOADMIN 04-13 02:22 → J2W 04-13 04:17 → J4W 04-13 22:30 → J7W 04-15 14:58
PROVIDERS: ADMIT Internal Medicine; ATTEND Nurse Practitioner Acute Care
PROC: HZ2ZZZZ Detoxification Services for Substance Abuse Treatment (ICD-10-PCS; principal; 2017-04-13)
DX: K22.6 Gastro-esophageal laceration-hemorrhage syndrome (principal); K92.2 Gastrointestinal hemorrhage, unspecified; F10.239 Alcohol dependence with withdrawal, unspecified; R74.0 Nonspecific elevation of levels of transaminase and lactic acid dehydrogenase [LDH]; E87.1 Hypo-osmolality and hyponatremia; E80.6 Other disorders of bilirubin metabolism; D69.6 Thrombocytopenia, unspecified; K29.20 Alcoholic gastritis without bleeding; E87.6 Hypokalemia; F17.210 Nicotine dependence, cigarettes, uncomplicated; K70.0 Alcoholic fatty liver
CPT/HCPCS: 36415; 71010-TC; 76705-TC; 80053; 80074; 80307; 81003; 81015; 82248; 82550; 82553; 82607; 82746; 83690; 83735; 84484; 85025; 85610; 85730; 86850; 86900; 86901; 93005; 93010; 99284-25

== ENCOUNTER 2018-03-03 19:06 | Inpatient (IN) | payer OTHER ==
[2018-03-03] MEDS ORDERED: FOLIC ACID INJECTION - 1 MG, THIAMINE HCL 100 MG, MULTIVIT INJECTION ADULT 10 ML in SOD... IVPB ONE (19:25)
--- NOTE | 2018-03-03 19:25 | PDOC ---
Rapid Medical Evaluation Time Seen by Provider: 03/03/18 19:22 Medical Evaluation: Allergies Allergy/AdvReac Type Severity Reaction Status Date / Time No Known Allergies Allergy Verified 04/12/17 23:16 I have performed a brief in-person evaluation of this patient. The patient presents with a chief complaint of: withdrawing from alcohol. hasn 't drank in 1.5 days. usually drinks a large bottle of rum every other day. syncopized at home and woke up on floor Pertinent physical exam findings: tremulous I have ordered the following: labs, UA, U tox, head CT The patient will proceed to the ED for further evaluation. Discharge Disposition - Diagnosis Alcohol withdrawal - Referrals - Patient Instructions - Post Discharge Activity
[2018-03-03 19:27] VITALS: BMI 27.1
[2018-03-03 19:50] LABS: BASO % 0.2 % (0-2.0); HEMATOCRIT 45.9 % (35.4-49); HEMOGLOBIN 15.3 GM/dL (11.7-16.9); LYMPH % 5.5 % (8-40); MCHC 33.2 g/dl (32.0-35.9); MEAN CELL VOLUME 87.1 fl (80-96); MEAN PLT VOLUME 8.8 fl (7.5-11.1); MONO % 6.1 % (3.8-10.2); NEUT % 88.2 % (42.8-82.8); RBC 5.27 M/mm3 (4.00-5.60); RDW 17.5 % (11.9-15.9); WHITE BLOOD COUNT 10.3 K/mm3 (4.0-10.0)
[2018-03-03] MEDS ORDERED: diazePAM CARPU-JECT 10 MG/2 ML DISP.SYRIN IVPUSH ONE (20:18)
--- NOTE | 2018-03-03 20:25 | PDOC ---
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 Patient states usually drinks "a large bottle of rum every 2 days" but has not had any drink in the past 2 days. Patient states she was walking around his house and he noticed he had hand tremors. Wasn't slightly below the lehr stripper when he lost his balance fell to the ground. He was able to immediately stand up and denies striking his head. Patient states that she fell is been increasing more tremors throughout his body and now is having a difficult time walking. Patient states she's express alcohol withdrawal on multiple separate occasions and this feels similar to him. He reports multiple episodes of bilious vomit breath the day today. He denies any blood or coffee ground emesis. Past History - Past Medical History Allergies/Adverse Reactions: Allergies Allergy/AdvReac Type Severity Reaction Status Date / Time No Known Allergies Allergy Verified 04/12/17 23:16 Home Medications: Ambulatory Orders Pantoprazole Sodium [Protonix -] 40 mg PO DAILY #30 tablet.ec 05/04/16 COPD: No GI Disorders: Yes (Upper GI bleed) - Suicide/Smoking/Psychosocial Hx Smoking History: Never smoked Have you smoked in the past 12 months: No Number of Cigarettes Smoked Daily: 2 Information on smoking cessation initiated: No 'Breaking Loose' booklet given: 04/13/17 Hx Alcohol Use: Yes Drug/Substance Use Hx: No Substance Use Type: Alcohol Review of Systems - Review of Systems Able to Perform ROS?: Yes Is the patient limited Vietnamese proficient: No Constitutional: No: Symptoms Reported HEENTM: No: Symptoms Reported Respiratory: No: Symptoms reported Cardiac (ROS): No: Symptoms Reported ABD/GI: Yes: See HPI : No: Symptoms Reported Musculoskeletal: Yes: See HPI Integumentary: No: Symptoms Reported Neurological: Yes: See HPI Endocrine: No: Symptoms Reported Hematologic/Lymphatic: No: Symptoms Reported *Physical Exam - Vital Signs Last Vital Signs Temp Pulse Resp BP Pulse Ox 98.6 F 136 H 19 134/97 95 03/03/18 19:24 03/03/18 19:24 03/03/18 19:24 03/03/18 19:24 03/03/18 19:24 - Physical Exam HEENT: positive: Normal ENT Inspection Neck: positive: Trachea midline, Supple Respiratory/Chest: positive: Lungs Clear, Normal Breath Sounds. negative: Respiratory Distress, Accessory Muscle Use Cardiovascular: positive: Regular Rhythm, S1, S2, Tachycardia. negative: Edema , Murmur Gastrointestinal/Abdominal: positive: Normal Bowel Sounds, Soft. negative: Tender Musculoskeletal: positive: Normal Inspection. negative: CVA Tenderness Extremity: positive: Other (tremulous with hand extended) Integumentary: positive: Normal Color, Dry, Warm Neurologic: positive: Fully Oriented, Alert, Normal Mood/Affect, Normal Response , Other (tremors present). negative: EOM Palsy, Facial Droop, Numbness, Sensory Deficit ED Treatment Course - LABORATORY CBC & Chemistry Diagram: 03/03/18 18:39 03/03/18 20:29 - ADDITIONAL ORDERS Additional order review: Laboratory Results 03/03/18 18:39 Sodium Cancelled Potassium Cancelled Chloride Cancelled Carbon Dioxide Cancelled Anion Gap Cancelled BUN Cancelled Creatinine Cancelled Creat Clearance w eGFR Cancelled Random Glucose Cancelled Calcium Cancelled Total Bilirubin Cancelled AST Cancelled ALT Cancelled Alkaline Phosphatase Cancelled Total Protein Cancelled Albumin Cancelled 03/03/18 18:39 RBC 5.27 MCV 87.1 MCHC 33.2 RDW 17.5 H MPV 8.8 Neutrophils % 88.2 H Lymphocytes % 5.5 L D Monocytes % 6.1 Eosinophils % 0.0 D Basophils % 0.2 Medical Decision Making - Medical Decision Making 03/03/18 20:28 A/P: 42-year-old male with acute alcohol withdrawal Vital signs on arrival are remarkable for heart rate of 136 Tremors noted to bilateral upper and lower extremities with arms extended No tongue fasciculations present Patient reports increasing anxiety and agitation Examination of the head reveals no obvious trauma. No hemotympanum is present. Oropharynx is clear without erythema or exudate CIWA-Ar score of 11 Patient is in acute alcohol withdrawal. I'll give the patient IV fluids and treated with benzos prn. Laboratory testing, head CT, EKG, admission 03/03/18 22:27 CT of the head as read by Dr. Fernandez: Negative exam. No discrete noncontrast CT pathology is identified. Incidental note is made of apparent deformity of the nasal bones bilaterally suggestive of prior fractures. EKG is interpreted by Dr. Talbert and reviewed by me: Sinus tachycardia with rate of 102. Normal intervals noted. Labs notable for potassium of 3.3 and total bili of 3.5. I will admit the patient to hospitalist for acute alcohol withdrawal and monitoring. 03/03/18 23:[address] Hutchison who accepts patient for admission to telemetry *DC/Admit/Observation/Transfer Diagnosis at time of Disposition: Hypokalemia, Alcohol dependence with uncomplicated withdrawal - Discharge Dispostion Condition at time of disposition: Fair Decision to Admit order: Yes - Referrals - Patient Instructions - Post Discharge Activity
[2018-03-03] MEDS ORDERED: LORazepam 2 MG/ML SDV VIAL ONE (20:26)
[2018-03-03 22:06] LABS: ALBUMIN 3.4 g/dl (3.4-5.0); ANION GAP 13 (8-16); BILIRUBIN,TOTAL 3.5 mg/dL (0.2-1.0); BLOOD UREA NITROGEN 13 mg/dL (7-18); CHLORIDE 96 mmol/L (98-107); CO2 26 mmol/L (21-32); CREATININE 0.9 mg/dL (0.7-1.3); GLUCOSE,RANDOM 87 mg/dL (74-106); POTASSIUM 3.3 mmol/L (3.5-5.1); SGOT/AST 79 U/L (15-37); SGPT/ALT 67 U/L (12-78); SODIUM 135 mmol/L (136-145); TOT PROT 6.6 g/dl (6.4-8.2)
[2018-03-03 22:06] LABS: PLATELET COUNT 81 K/MM3 (134-434)
[2018-03-03 22:07] LABS: PLATELET ESTIMATE MOD DECREASED
[2018-03-03 22:07] LABS: ALK PHOS 100 U/L (45-117)
[2018-03-03] MEDS ORDERED: chlordiazePOXIDE HCL 25 MG CAPSULE PO ONE (22:28)
[2018-03-03] MEDS ORDERED: POTASSIUM CHLORIDE TABS 20 MEQ TABLET.ER (FP) PO ONE ×2 (22:32→23:13)
[2018-03-03] MEDS ORDERED: chlordiazePOXIDE HCL 25 MG CAPSULE ONE (23:13)
--- NOTE | 2018-03-04 00:07 | PN ---
Teaching Attending Note ATTENDING PHYSICIAN STATEMENT I saw and evaluated the patient. I reviewed the resident's note and discussed the case with the resident. I agree with the resident's findings and plan as documented. SUBJECTIVE: OBJECTIVE: ASSESSMENT AND PLAN: patient was sleeping when evaluated, he was given lorazepam for agitation plan: due to the history of alcoholism with withdrawal patient consumes 1L of vodka every 2 days presented with acute withdrawal symptoms admit to hospital place on withdrawal protocol w ivp lorazepam prn IV thiamine switch to PO when patient is more awake admit to tele if the patient worsens then admit to MICU for further management
[2018-03-04] MEDS ORDERED: chlordiazePOXIDE HCL 25 MG CAPSULE PO PRN (00:21)
--- NOTE | 2018-03-04 00:22 | HP ---
CHIEF COMPLAINT: tremors, alcohol withdrawal PCP: None HISTORY OF PRESENT ILLNESS: The pt is a 42-year-old male with history of alcohol abuse, Mark-Matt tear presented to the hospital s/p fall earlier today. 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 He didn't LOC, no seizure, no urination, BM, biting tongue, no hitting head. He was able to get up immediately. The patient usually drinks "a large bottle of rum every 2 days" but has not had any drink in the past 2 days, ( since morning). Sinece then he started experiencing more tremors throughout his body and balance problems. 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 Patient states that he experienced alcohol withdrawal in the past. He reports multiple episodes of non bilious, non bloody emesis since last drink on . In the past he had hematemesis, had EGD done. The patient denies chest pain, palpitations, visual problems, headache, SOB. He denies pain in his back, extremities. ER course was notable for: (1)Ativan (2)K 3.3 (3)CT head PAST MEDICAL HISTORY: as above PAST SURGICAL HISTORY: none Social History: Smoking:denies Alcohol:yes Drugs: denies Family History: alcoholism; many family members including parents Allergies No Known Allergies Allergy (Verified 04/12/17 23:16) HOME MEDICATIONS: Home Medications Medication Instructions Recorded Pantoprazole Sodium [Protonix -] 40 mg PO DAILY #30 tablet.ec 05/04/16 REVIEW OF SYSTEMS: limited CONSTITUTIONAL: Absent: fever, chills, diaphoresis, generalized weakness, malaise, HEENT: Absent: rhinorrhea, nasal congestion, throat pain, throat swelling, difficulty swallowing, mouth swelling, CARDIOVASCULAR: Absent: chest pain, syncope, palpitations, irregular heart rate, lightheadedness , peripheral edema RESPIRATORY: Absent: cough, shortness of breath, dyspnea with exertion, orthopnea, wheezing, stridor, hemoptysis GASTROINTESTINAL: Absent: abdominal pain, abdominal distension, nausea, vomiting, diarrhea, constipation, melena, GENITOURINARY: Absent: dysuria, frequency, urgency, hesitancy, hematuria, flank pain, genital pain MUSCULOSKELETAL: Absent: myalgia, arthralgia, joint swelling, back pain, neck pain SKIN: Absent: rash, itching, pallor HEMATOLOGIC/IMMUNOLOGIC: Absent: easy bleeding, easy bruising, lymphadenopathy, frequent infections ENDOCRINE: Absent: unexplained weight gain, unexplained weight loss, heat intolerance, cold intolerance NEUROLOGIC: unsteady gait, tremor Absent: headache, focal weakness or paresthesias, dizziness, seizure, PSYCHIATRIC: Absent: anxiety, depression, PHYSICAL EXAMINATION Vital Signs - 24 hr 03/03/18 03/03/18 19:24 21:58 Temperature 98.6 F Pulse Rate 136 H Pulse Rate [ 96 H Right Radial] Respiratory 19 16 Rate Blood Pressure 134/97 O2 Sat by Pulse 95 Oximetry (%) GENERAL: Awake, alert, and fully oriented, in no acute distress, lying in bed. HEAD: Normal with no signs of trauma. EYES: Pupils equal, round and reactive to light, extraocular movements intact, sclera anicteric, conjunctiva clear. No lid lag. EARS, NOSE, THROAT: Ears normal, nares patent, oropharynx clear without exudates. Moist mucous membranes. NECK: Normal range of motion, supple without lymphadenopathy, JVD, or masses. LUNGS: Breath sounds equal, clear to auscultation bilaterally. No wheezes, and no crackles. No accessory muscle use. HEART: Regular rate and rhythm, normal S1 and S2 without murmur, rub or gallop. ABDOMEN: Soft, nontender, not distended, normoactive bowel sounds, no guarding, no rebound, no masses. MUSCULOSKELETAL: Normal range of motion at all joints. No bony deformities or tenderness. UPPER EXTREMITIES: No peripheral edema. LOWER EXTREMITIES: 2+ pulses, no peripheral edema. NEUROLOGICAL: No facial symmetry, no slurred speech, gait not observed, tremolous. PSYCHIATRIC: Cooperative. Good eye contact. Appropriate mood and affect. SKIN: Warm, dry, normal turgor, no rashes. Laboratory Results - last 24 hr 03/03/18 03/03/18 03/03/18 18:39 18:39 20:29 WBC 10.3 H D RBC 5.27 Hgb 15.3 Hct 45.9 MCV 87.1 MCH 29.0 D MCHC 33.2 RDW 17.5 H Plt Count 81 L MPV 8.8 Neutrophils % 88.2 H Lymphocytes % 5.5 L D Monocytes % 6.1 Eosinophils % 0.0 D Basophils % 0.2 Nucleated RBC % 0 Platelet Estimate Mod decreased Platelet Comment Slide scanned Sodium Cancelled 135 L Potassium Cancelled 3.3 L Chloride Cancelled 96 L D Carbon Dioxide Cancelled 26 Anion Gap Cancelled 13 BUN Cancelled 13 D Creatinine Cancelled 0.9 Creat Clearance w eGFR Cancelled > 60 Random Glucose Cancelled 87 D Calcium Cancelled 8.0 L Total Bilirubin Cancelled 3.5 H D AST Cancelled 79 H D ALT Cancelled 67 D Alkaline Phosphatase Cancelled 100 D Total Protein Cancelled 6.6 Albumin Cancelled 3.4 ASSESSMENT/PLAN: The pt is a 42-year-old male with history of alcohol abuse, Mark-Matt tear presented to the hospital s/p fall earlier today. 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 He is admitted for alcohol withdrawal. Alcohol withdrawal: -given Valium 5 mg IV ONCE, Ativan 2 mg IV, Librium 50 mg ONCE -given "banana bag" in ED, will continue multi vit, thimine, -cont NS -Librium protocol started -spirtion precautions, head elevation -NPO for now -will monitor for withdrawal -CIWA on admission 11 -f/u mg, phos in AM H/o of mark-Matt tear: -no hematmesis reported -no anemia Hypokalemia: -K 3.3 -repleated with K-Dur 40 mg Po -will follow up DVT PPX: heparin sc scd F/e/N: banana bag/no changes/NPO Disposition: telemetry Problem List - Problem (1) Alcohol dependence with uncomplicated withdrawal Code(s): F10.230 - ALCOHOL DEPENDENCE WITH WITHDRAWAL, UNCOMPLICATED (2) Hypokalemia Code(s): E87.6 - HYPOKALEMIA Visit type - Emergency Visit Emergency Visit: Yes ED Registration Date: 03/03/18 Care time: The patient presented to the Emergency Department on the above date and was hospitalized for further evaluation of their emergent condition. - New Patient This patient is new to me today: Yes Date on this admission: 03/04/18 - Critical Care Critical Care patient: No Hospitalist Screening - Colonoscopy Questionnaire Colonoscopy Questionnaire: Colonoscopy Questionnaire - Patient: 50 - 75 years old and never had a screening colonoscopy: Unknown History of colon or rectal polyps, or CA: Unknown History of IBD, Crohn's disease or UC: Unknown History of abdominal radiation therapy as a child: Unknown - Relative: 1 with colon or rectal CA, or polyps at age 60 or younger: Unknown Colon or rectal CA diagnosed at age 45 or younger: Unknown Multiple relatives with colon or rectal CA: Unknown - Outcome: Screening Result: Negative Screen
[2018-03-04] MEDS ORDERED: SODIUM CHLORIDE 1,000 ML IV SCH (04:30)
[2018-03-04] MEDS: chlordiazePOXIDE HCL 25 MG CAPSULE PO SCH ×2 (05:06→09:59)
[2018-03-04] MEDS ORDERED: chlordiazePOXIDE HCL 25 MG CAPSULE ONE ×2 (05:07→10:02)
[2018-03-04] MEDS ORDERED: MULTIVITAMINS (DAILY MVI) TABLET (FP) PO SCH (10:00)
[2018-03-04] MEDS ORDERED: THIAMINE HCL 100 MG TABLET (FP) PO SCH (10:00)
[2018-03-04] MEDS ORDERED: HEPARIN NA (PORCINE) 5,000 UNITS/ML 1ML VIAL SQ SCH (10:00)
[2018-03-04 11:17] VITALS: BP 101/60; PULSE 121; TEMP 98
[2018-03-04 12:12] LABS: URINE APPEARANCE CLEAR; URINE BLOOD NEGATIVE (NEGATIVE); URINE COLOR AMBER; URINE GLUCOSE (UA) NEGATIVE (NEGATIVE); URINE KETONE 2+ (NEGATIVE); URINE LEUK ESTERASE NEGATIVE (NEGATIVE); URINE NITRITE NEGATIVE (NEGATIVE); URINE UROBILINOGEN 4.0 E.U/dl mg/dL (0.2-1.0)
[2018-03-04] MEDS ORDERED: POTASSIUM CHLORIDE ORAL LIQUID 20 MEQ/15 ML PO ONE (12:14)
[2018-03-04 12:25] LABS: URINE PROTEIN 1+ (NEGATIVE)
[2018-03-04 12:32] LABS: EPI CELLS RARE /HPF (FEW); URINE MUCUS RARE
--- NOTE | 2018-03-04 13:18 | DS ---
Physical Exam: SUBJECTIVE: Patient seen and examined. c/o anxiety. assoc with some nausea. denies CP, SOB, fever, chills, V/C/D OBJECTIVE: Vital Signs Period Temp Pulse Resp BP Sys/Jin Pulse Ox Last 24 Hr 98 F-98.6 F 88-136 16-19 101-134/60-97 95-99 PHYSICAL EXAM GENERAL: The patient is awake, alert, and fully oriented, in no acute distress. mildly anxious. HEAD: Normal with no signs of trauma. EYES: PERRL, extraocular movements intact, sclera anicteric, conjunctiva clear. ENT: Ears normal, nares patent, oropharynx clear without exudates, moist mucous membranes. NECK: Trachea midline, full range of motion, supple. LUNGS: Breath sounds equal, clear to auscultation bilaterally, no wheezes, no crackles, no accessory muscle use. HEART: Regular rate and rhythm, S1, S2 without murmur, rub or gallop. ABDOMEN: Soft, nontender, nondistended, normoactive bowel sounds, no guarding, no rebound, no hepatosplenomegaly, no masses. EXTREMITIES: 2+ pulses, warm, well-perfused, no edema. NEUROLOGICAL: Cranial nerves II through XII grossly intact. Normal speech, + tremor PSYCH: Normal mood, normal affect. SKIN: Warm, dry, normal turgor, no rashes or lesions noted. LABS Laboratory Results - last 24 hr 03/03/18 03/03/18 03/03/18 18:39 18:39 20:29 WBC 10.3 H D RBC 5.27 Hgb 15.3 Hct 45.9 MCV 87.1 MCH 29.0 D MCHC 33.2 RDW 17.5 H Plt Count 81 L MPV 8.8 Neutrophils % 88.2 H Lymphocytes % 5.5 L D Monocytes % 6.1 Eosinophils % 0.0 D Basophils % 0.2 Nucleated RBC % 0 Platelet Estimate Mod decreased Platelet Comment Slide scanned Sodium Cancelled 135 L Potassium Cancelled 3.3 L Chloride Cancelled 96 L D Carbon Dioxide Cancelled 26 Anion Gap Cancelled 13 BUN Cancelled 13 D Creatinine Cancelled 0.9 Creat Clearance w eGFR Cancelled > 60 Random Glucose Cancelled 87 D Calcium Cancelled 8.0 L Total Bilirubin Cancelled 3.5 H D AST Cancelled 79 H D ALT Cancelled 67 D Alkaline Phosphatase Cancelled 100 D Total Protein Cancelled 6.6 Albumin Cancelled 3.4 Urine Color Urine Appearance Urine pH Ur Specific [place] Urine Protein Urine Glucose (UA) Urine Ketones Urine Blood Urine Nitrite Urine Bilirubin Urine Urobilinogen Ur Leukocyte Esterase Urine WBC (Auto) Urine RBC (Auto) Ur Epithelial Cells Urine Mucus 03/04/18 11:55 WBC RBC Hgb Hct MCV MCH MCHC RDW Plt Count MPV Neutrophils % Lymphocytes % Monocytes % Eosinophils % Basophils % Nucleated RBC % Platelet Estimate Platelet Comment Sodium Potassium Chloride Carbon Dioxide Anion Gap BUN Creatinine Creat Clearance w eGFR Random Glucose Calcium Total Bilirubin AST ALT Alkaline Phosphatase Total Protein Albumin Urine Color [place] Urine Appearance Clear Urine pH 6.0 Ur Specific [place] 1.029 Urine Protein 1+ H Urine Glucose (UA) Negative Urine Ketones 2+ H Urine Blood Negative Urine Nitrite Negative Urine Bilirubin 2.0 Urine Urobilinogen 4.0 e.u/dl Ur Leukocyte Esterase Negative Urine WBC (Auto) 1 Urine RBC (Auto) 1 Ur Epithelial Cells Rare Urine Mucus Rare HOSPITAL COURSE: Date of Admission:03/03/18 Date of Discharge: 03/04/18 Admitting diagnosis: Acute ETOH withdrawal, hypokalemia PRe hospital course 42-year-old male with history of alcohol abuse, Lizzy-Matt tear presented to the hospital s/p fall earlier today. 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 He didn't LOC, no seizure, no urination, BM, biting tongue, no hitting head. He was able to get up immediately. The patient usually drinks "a large bottle of rum every 2 days" but has not had any drink in the past 2 days, (since morning). Sinece then he started experiencing more tremors throughout his body and balance problems. 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 Patient states that he experienced alcohol withdrawal in the past. He reports multiple episodes of non bilious, non bloody emesis since last drink on . In the past he had hematemesis, had EGD done. The patient denies chest pain, palpitations, visual problems, headache, SOB. He denies pain in his back, extremities. Subsequent hospital course admitted to medicine. started on IVF, librium protocol and given potassium supplements. walked by PT walked 200ft. will d/c to [facility] to complete detox. d/w pt need to abstain from ETOH use. pt is interested in inpatient rehab there and will d/w with staff at [facility] regarding it. Minutes to complete discharge: 40 Discharge Summary Reason For Visit: ALCOHOL DEPENDENCE WITH UNCOMPLICATED WITHDRAWAL Current Active Problems Alcohol dependence with uncomplicated withdrawal (Acute) Alcohol withdrawal (Acute) Hypokalemia (Acute) Condition: Improved - Instructions Diet, Activity, Other Instructions: You were admitted to the hospital for alcohol withdrawal. You are being sent to [facility] for detox FOllow the program there as instructed It is important that you refrain from drinking alcohol as this can cause serious health effects and can lead to early Follow up wtih your primary care doctor in 1 week Disposition: TRANSFER ACUTE CARE/OTHER HOSP - Home Medications Comprehensive Discharge Medication List: Ambulatory Orders Pantoprazole Sodium [Protonix -] 40 mg PO DAILY #30 tablet.ec 05/04/16 Chlordiazepoxide [Librium -] 15 mg PO [id number] capsule MDD 60 03/04/18 Chlordiazepoxide [Librium -] 50 mg PO [id number] capsule MDD 200 03/04/18 Multivitamins [Multivit ([facility] Formul[facility])] 1 tab PO DAILY tab 03/04/18 Thiamine HCl [Vitamin B1 -] 100 mg PO DAILY tablet 03/04/18 This patient is new to me today: Yes Date on this admission: 03/04/18 Emergency Visit: Yes ED Registration Date: 03/03/18 Care time: The patient presented to the Emergency Department on the above date and was hospitalized for further evaluation of their emergent condition. Critical Care patient: No - Discharge Referral Referred to [facility] Med P.C[facility] No
[2018-03-04 13:34] LABS: COCAINE, UR NEGATIVE ng/ml (CUTOFF=300); METHADONE, UR NEGATIVE ng/ml (CUTOFF=300); OPIATES, URI NEGATIVE ng/ml (CUTOFF=300); PHENCYCLIDINE,URINE NEGATIVE ng/ml (CUTOFF=25); URINE AMPHETAMINES NEGATIVE ng/ml (CUTOFF=500); URINE BARBITURATES NEGATIVE ng/ml (CUTOFF=200)
[2018-03-04 13:35] LABS: URINE BENZODIAZEPINES POSITIVE ng/ml (CUTOFF=200)
[2018-03-05] MEDS ORDERED: chlordiazePOXIDE HCL 25 MG CAPSULE PO SCH (05:00)
--- NOTE | 2018-03-05 22:23 | EKG ---
Test Reason : Blood Pressure : / mmHG Vent. Rate : 102 BPM Atrial Rate : 102 BPM P-R Int : 166 ms QRS Dur : 094 ms QT Int : 368 ms P-R-T Axes : 047 016 043 degrees QTc Int : 479 ms SINUS TACHYCARDIA CANNOT RULE OUT ANTERIOR INFARCT (CITED ON OR BEFORE 13-APR-2017) ABNORMAL ECG WHEN COMPARED WITH ECG OF 13-APR-2017 02:48, NO SIGNIFICANT CHANGE WAS FOUND Confirmed by IFEOMA WILSON MD ([id number]) on 03/05/2018 10:22:40 PM Referred By: Confirmed By:IFEOMA WILSON MD
[2018-03-06] MEDS ORDERED: chlordiazePOXIDE 5 MG CAPSULE PO SCH (05:00)
== END 2018-03-04 16:00 | disposition other institution (70) | DRG 775 ==
LOC: JER 19:06 → JERBED 23:15
PROVIDERS: ADMIT Internal Medicine; ATTEND Internal Medicine
DX: F10.230 Alcohol dependence with withdrawal, uncomplicated (principal); E87.6 Hypokalemia
CPT/HCPCS: 36415; 70450-TC; 71046-TC-FY; 80053; 80307; 81003; 81015; 85025; 93005; 93010; 97116-GP; 97161-GP; 99285-25; G0480; J1644; J7030

== ENCOUNTER 2018-03-04 16:18 | Inpatient (IN) | payer MEDICARE, OTHER ==
[2018-03-04 19:23] VITALS: BP 137/83; PULSE 115; TEMP 98.7; BMI 27.1
--- NOTE | 2018-03-04 20:35 | HP ---
CIWA Score - CIWA Score Nausea/Vomitin-Int. Nausea w/Dry Heave Muscle Tremors: 5 Anxiety: 4-Mod. Anxious/Guarded Agitation: 4-Moderately Restless Paroxysmal Sweats: 3 Orientation: 0-Oriented Tacttile Disturbances: 0-None Auditory Disturbances: 0-None Visual Disturbances: 0-None Headache: 2-Mild CIWA-Ar Total Score: 22 Admission ROS [facility] - HPI Chief Complaint: SEEKING DETOX TXMENT FOR ETOH R/T WITHDRAWAL SX'S Allergies/Adverse Reactions: Allergies Allergy/AdvReac Type Severity Reaction Status Date / Time No Known Allergies Allergy Verified 03/04/18 20:54 History of Present Illness: 42 Y.O. MALE WITH LONG HX/O ALCOHOLISM HERE FOR DETOX. CLIENT WAS SENT BY [facility] AFTER STABILIZING HIM FOR SEVERE ETOH WITHDRAWAL SX'S AND A FALL. CLIENT HAS BEEN MEDICALLY CLEARED. PREVIOUS DETOX TXMENT WAS WITH HOSPITALIZATIONS. DENIES ANY SIGNIFICANT PERIOD OF CLEAN TIME. DENIES HX/O SEIZURE, BLACK OUTS, SI /HI. PMHX: DENIES PSYCH:DENIES Exam Limitations: No Limitations - Ebola screening Have you traveled outside of the country in the last 21 days: No (N) Have you had contact with anyone from an Ebola affected area: No Have you been sick,other than usual withdrawal symptoms: No Do you have a fever: No - Review of Systems Constitutional: Chills, Loss of Appetite, Night Sweats, Changes in sleep EENT: reports: Throat Pain (SORE FROM THROWING UP) Respiratory: reports: No Symptoms reported Cardiac: reports: No Symptoms Reported GI: reports: Nausea, Poor Fluid Intake, Vomiting, Abdominal cramping : reports: No Symptoms Reported Musculoskeletal: reports: Back Pain (CHRONIC) Integumentary: reports: No Symptoms Reported Neuro: reports: No Symptoms reported Endocrine: reports: No Symptoms Reported Hematology: reports: No Symptoms Reported Psychiatric: reports: Anxious Other Systems: Reviewed and Negative Patient History - Patient Medical History Hx Anemia: No Hx Asthma: No Hx Chronic Obstructive Pulmonary Disease (COPD): No Hx Cancer: No Hx Cardiac Disorders: No Hx Congestive Heart Failure: No Hx Hypertension: No Hx Hypercholesterolemia: No Hx Pacemaker: No HX Cerebrovascular Accident: No Hx Seizures: No Hx Dementia: No Hx Diabetes: No Hx Gastrointestinal Disorders: Yes (Upper GI bleed) Hx Liver Disease: No Hx Genitourinary Disorders: No Hx Sexually Transmitted Disorders: No Hx Renal Disease (ESRD): No Hx Thyroid Disease: No Hx Human Immunodeficiency Virus (HIV): No Hx Hepatitis C: No Hx Depression: No Hx Suicide Attempt: No Hx Bipolar Disorder: No Hx Schizophrenia: No Other Medical History: ANXIETY - Patient Surgical History Past Surgical History: No - PPD History Previous Implant?: No Implanted On Prior [facility] Admission?: No PPD to be Administered?: Yes - Smoking Cessation Smoking history: Current some day smoker Have you smoked in the past 12 months: Yes Aproximately how many cigarettes per day: 2 Cigars Per Day: 0 Hx Chewing Tobacco Use: No Initiated information on smoking cessation: Yes 'Breaking Loose' booklet given: 03/04/18 - Substance & Tx. History Hx Alcohol Use: Yes Hx Substance Use: Yes Substance Use Type: Alcohol Hx Substance Use Treatment: No - Substances Abused RUM Route: Oral Frequency: Daily Amount used: 750ML Age of first use: 16 Date of Last Use: 03/01/18 Family Disease History - Family Disease History Family Disease History: Other: Father ([place], ALCOHOL DEP), Brother (ALCOHOL DEP) Admission Physical Exam S - Vital Signs Vital Signs: Vital Signs - 24 hr 03/04/18 19:21 Temperature 98.7 F Pulse Rate 115 H Respiratory 18 Rate Blood Pressure 137/83 - Physical General Appearance: Yes: Appropriately Dressed, Moderate Distress, Tremorous, Sweating (FLUSHING), Anxious HEENTM: Yes: EOMI, Normocephalic, Normal Voice, LUIS, Pharynx Normal, Other ( TONGUE FISSURES) Respiratory: Yes: Chest Non-Tender, Lungs Clear, Normal Breath Sounds, No Respiratory Distress, No Accessory Muscle Use Neck: Yes: No masses,lesions,Nodules, Supple, Trachea in good position Breast: Yes: Breast Exam Deferred Cardiology: Yes: Regular Rhythm, S1, S2, Tachycardia Abdominal: Yes: Normal Bowel Sounds, Non Tender, Flat, Soft Genitourinary: Yes: Within Normal Limits Back: Yes: Normal Inspection Musculoskeletal: Yes: full range of Motion, Gait Steady Extremities: Yes: Normal Range of Motion, Non-Tender, Tremors Neurological: Yes: Fully Oriented, Alert, Motor Strength 5/5 Integumentary: Yes: Warm, Other (FLUSHING) Lymphatic: Yes: Within Normal Limits - Diagnostic (1) Anxiety Current Visit: Yes Status: Suspected (2) Nicotine abuse Current Visit: Yes Status: Chronic (3) Dehydration Current Visit: Yes Status: Acute (4) Alcohol dependence with uncomplicated withdrawal Current Visit: Yes Status: Acute (5) Alcoholic liver disease Current Visit: Yes Status: Chronic Cleared for Admission [facility] - Detox or Rehab [facility] Level of Care: Medically Managed Detox Regimen/Protocol: Librium Claeared for Rehab Admission: No [facility] Breath Alcohol Content Breath Alcohol Content: 0 Urine Drug Screen - Results Drug Screen Negative: No Urine Drug Screen Results: BZO-Benzodiazepines
[2018-03-04] MEDS ORDERED: MAG HYDROX/AL HYDROX/SIMETH 30 ML UNIT-DOSE CUP PO PRN (20:42)
[2018-03-04] MEDS ORDERED: NICOTINE POLACRILEX 2 MG GUM BC PRN (20:42)
[2018-03-04] MEDS ORDERED: MENTHOL/PHENOL 1 EACH UD MM PRN (20:42)
[2018-03-04] MEDS ORDERED: hydrOXYzine PAMOATE 50 MG CAPSULE (FP) PO PRN (20:42)
[2018-03-04] MEDS ORDERED: LOPERAMIDE HCL 2 MG CAPSULE PO PRN (20:42)
[2018-03-04] MEDS ORDERED: guaiFENesin/D-METHORPHAN HB 10 ML UNIT-DOSE CUPS PO PRN (20:42)
[2018-03-04] MEDS ORDERED: P-EPHED 60MG/TRIPROLIDI 2.5MG TABLET PO PRN (20:42)
[2018-03-04] MEDS ORDERED: MAGNESIUM HYDROX 2400MG/30ML ORAL SUSPENSION 30 ML CUP PO PRN (20:42)
[2018-03-04] MEDS ORDERED: MAGNESIUM CITRATE 300 ML BOTTLE PO PRN (20:42)
[2018-03-04] MEDS ORDERED: ACETAMINOPHEN 325 MG TABLET (FP) PO PRN (20:42)
[2018-03-04] MEDS ORDERED: chlordiazePOXIDE HCL 25 MG CAPSULE PO PRN (20:42)
[2018-03-04] MEDS ORDERED: IBUPROFEN 400 MG TABLET (FP) PO PRN (20:42)
[2018-03-04] MEDS ORDERED: MELATONIN 5 MG TABLETS PO PRN (22:00)
[2018-03-04] MEDS ORDERED: THIAMINE HCL 100 MG TABLET (FP) PO SCH (22:00)
[2018-03-04] MEDS ORDERED: chlordiazePOXIDE HCL 25 MG CAPSULE PO SCH (23:00)
--- NOTE | 2018-03-04 23:32 | HP ---
Screened but not Admitted - Documentation of Visit Screened but not Admitted: Yes Additional Information/Explanation: CLIENT ABORTED ADMISSION
[2018-03-05] MEDS ORDERED: PRENATAL VITAMINS W/ FOLIC ACID TABLET (FP) PO SCH (10:00)
--- NOTE | 2018-03-05 22:41 | EKG ---
Test Reason : Blood Pressure : / mmHG Vent. Rate : 093 BPM Atrial Rate : 093 BPM P-R Int : 154 ms QRS Dur : 082 ms QT Int : 382 ms P-R-T Axes : 039 026 055 degrees QTc Int : 474 ms NORMAL SINUS RHYTHM NORMAL ECG WHEN COMPARED WITH ECG OF 03-MAR-2018 19:40, NO SIGNIFICANT CHANGE WAS FOUND Confirmed by IFEOMA WILSON MD ([id number]) on 03/05/2018 10:41:17 PM Referred By: Confirmed By:IFEOMA WILSON MD
[2018-03-05] MEDS ORDERED: chlordiazePOXIDE HCL 25 MG CAPSULE PO SCH (23:00)
[2018-03-06] MEDS ORDERED: chlordiazePOXIDE 5 MG CAPSULE PO SCH (23:00)
[2018-03-07] MEDS ORDERED: chlordiazePOXIDE HCL 10 MG CAPSULE PO SCH (23:00)
== END 2018-03-04 22:45 | disposition home or self-care (01) | DRG 775 ==
LOC: YASAS 16:18 → Y6N 21:13
PROVIDERS: ADMIT Surgery; ATTEND Surgery
PROC: HZ2ZZZZ Detoxification Services for Substance Abuse Treatment (ICD-10-PCS; principal; 2018-03-04)
DX: F10.230 Alcohol dependence with withdrawal, uncomplicated (principal); Z72.0 Tobacco use; F41.9 Anxiety disorder, unspecified; E86.0 Dehydration; K70.9 Alcoholic liver disease, unspecified
CPT/HCPCS: 93005; 93010